=== PATIENT | male | born 1955 | race Caucasian/White ===

== ENCOUNTER 2016-10-05 04:34 | Inpatient (IN) | payer MEDICAID ==
[2016-10-05 04:34] VITALS: BMI 21.1
--- NOTE | 2016-10-05 05:06 | ED PDOC ---
HPI: SOB/CHF/COPD Chief Complaint (Provider): SAME History Per: Family History/Exam Limitations: physical impairment Onset/Duration Of Symptoms: Days Current Symptoms Are (Timing): Still Present <Manuela Rivera - Last Filed: 10/05/16 06:37> <Triston Falcon - Last Filed: 10/10/16 20:50> Time Seen by Provider: 10/05/16 04:39 Chief Complaint (Nursing): Shortness Of Breath Additional Complaint(s): 61M BIBA for acute SOB. reports that patient developed acute onset shortness of breath last night that did not improve. On further questioning patient has not been eating for 1 week, barely consumes 1/2 can of ensure/day and has decreased urine output that the reports is "dark". She reports last BM was yesterday "a little bit". PMD: Fan Long (Manuela Rivera) Past Medical History - Medical History PMH: CAD, CVA, HTN, Hypercholesterolemia, Peripheral Edema (NOT AT PRESENT) Denies: Chronic Kidney Disease - Family History Family History: States: Unknown Family Hx <DorypamelaManuela - Last Filed: 10/05/16 06:37> <Triston Falcon - Last Filed: 10/10/16 20:50> Vital Signs: Last Vital Signs Temp 100.8 F H 10/09/16 20:00 Pulse 110 H 10/09/16 20:00 Resp 39 H 10/09/16 20:00 BP 93/46 L 10/09/16 20:00 Pulse Ox 99 10/09/16 20:00 - Home Medications Home Medications: Ambulatory Orders Medication Instructions Recorded Aspirin [Ecotrin] 81 mg PO DAILY 10/24/15 Loratadine [Allergy] 10 mg PO DAILY 10/24/15 Losartan Potassium 25 mg PO DAILY 10/24/15 Quetiapine Fumarate 25 mg PO HS PRN 10/24/15 Rivastigmine 9.5 mg/24 hr [Exelon 1 patch TOP DAILY 10/24/15 9.5 mg/24 hr Patch] - Allergies Allergies/Adverse Reactions: Allergies Allergy/AdvReac Type Severity Reaction Status Date / Time No Known Allergies Allergy Verified 05/20/16 14:37 Wells Criteria for PE - Wells Criteria for Pulmonary Embolism Clinical Signs and Symptoms of DVT: Yes P.E is #1 Diagnosis, or Equally Likely: Yes Heart Rate >100: Yes Immobilization at least 3 days;Surgery previous 4 weeks: Yes Previous, objectively diagnosed PE or DVT: No Hemoptysis: No Malignancy w/treatment within 6 months, or palliative: No Total Score: 7.0 <Manuela Rivera - Last Filed: 10/05/16 06:37> Review of Systems ROS Statement: Except As Marked, All Systems Reviewed And Found Negative Constitutional: Positive for: Weakness Respiratory: Positive for: Shortness of Breath <Manuela Rivera - Last Filed: 10/05/16 06:37> Physical Exam - Physical Exam Appears: Positive for: Uncomfortable, In Acute Distress Head Exam: Positive for: ATRAUMATIC, NORMAL INSPECTION Skin: Positive for: Dry, Jaundice. Negative for: Diaphoresis Eye Exam: Positive for: EOMI, PERRL, Scleral icterus Neck: Positive for: Supple, Trachea Midline Cardiovascular/Chest: Positive for: JVD, Murmur, Tachycardia Respiratory: Negative for: Crackles, Rales, Wheezing Gastrointestinal/Abdominal: Positive for: Bowel Sounds, Soft. Negative for: Tenderness Male Genital Exam: Positive for: hernia mass (reducible) Extremity: Positive for: Pedal Edema (RIGHT 1+), Capillary Refill, Swelling ( RLE 1-2+) Neurologic/Psych: Positive for: Alert, Motor/Sensory Deficits (AT baseline) <Manuela Rivera - Last Filed: 10/05/16 06:37> - Laboratory Results Result Diagrams: 10/05/16 05:21 10/05/16 05:21 - ECG ECG: Positive for: Interpreted By Nh ECG Rhythm: Positive for: Sinus Rhythm, Sinus Tachycardia, Left Bundle Branch Block O2 Sat by Pulse Oximetry: 97 - Radiology X-Ray: Interpreted by Nh X-Ray Interpretation: Heart Size (Large) <Manuela Rivera - Last Filed: 10/05/16 06:37> - Laboratory Results Result Diagrams: 10/09/16 04:30 10/09/16 04:30 <Triston Falcon - Last Filed: 10/10/16 20:50> Medical Decision Making <Manuela Rivera - Last Filed: 10/05/16 06:37> <Triston Falcon - Last Filed: 10/10/16 20:50> Medical Decision MakinM with acute onset tachypnea volume depletion vs. PE vs. sepsis vs. electrolyte derangement. - ABG- shock: Lactate-6.2 - CBC: no anemia/leukocytosis but likely heme-concentrated - CMP: hyperkalemia, metabolic acidosis, BUN/Cr c/w pre-renal - urine dip/urinalysis/urine C&S - CXR: no infiltrates, enlarged heart - BNP: PENDING - Troponin: 0.05 - D-dimer: PENDING - PT/INR: prolonged - PTT: wnl 0605: BP/HR improving; Elevated LFT/chemistries c/w significant volume depletion. Sepsis unlikely at this time. Labs and points of improvement more c/ w volume depletion picture. - b/l Venous duplex for RLE edema x2 days - RUQ Ultrasound (Manuela Rivera) Provider examined patient as well. Patient shows clinical signs and symtoms of dehydration; also feel he has high probability of PE given LE edema and dyspnea. This is likely etiology of poor perfusion related elevated lactate level. Patient does not have acidosis on ABG or leukocytosis or fever making sepsis less likely. Patient signed out to Dr Johnson at 7AM; pending labs, imaging and re-eval. (Triston Falcon) Disposition - Patient ED Disposition Is Patient to be Admitted: Transfer of Care - Disposition Disposition: Transfer of Care Disposition Time: 06:40 Patient Signed Over To: Ryan Johnson III <Manuela Rivera - Last Filed: 10/05/16 06:37> <Triston Falcon - Last Filed: 10/10/16 20:50> - Clinical Impression Clinical Impression: Hypovolemia dehydration, SIRS (systemic inflammatory response syndrome) - Disposition Condition: CRITICAL
[2016-10-05 05:29] LABS: ABG ALLEN TEST YES; ARTERIAL BLOOD GAS HCO3 17.8 mmol/L (21-28); ARTERIAL BLOOD GAS MODE 3LNC; ARTERIAL BLOOD GAS PH 7.41 (7.35-7.45); ARTERIAL BLOOD GAS PO2 90 mm/Hg (80-100)
[2016-10-05 05:48] LABS: PARTIAL THROMBOPLASTIN TIME 32.2 SECONDS (23.3-32.5)
[2016-10-05 06:02] LABS: BASO % 0.1 % (0.0-2.0); HEMATOCRIT 46.8 % (35.0-51.0); LYMPH # 0.8 K/uL (1.0-4.3); LYMPH % 11.5 % (20.0-40.0); MEAN CORPUSCULAR HGB CONC 31.6 g/dL (33.0-37.0); MEAN PLATELET VOLUME 8.5 fl (7.2-11.7); MONO # 1.1 K/uL (0.0-0.8); MONO % 15.5 % (0.0-10.0); NEUT # 5.3 K/uL (1.8-7.0); NEUT % 72.9 % (50.0-75.0); NRBC % 0.2 % (0.0-0.0); RED CELL DISTRIBUTION WIDTH 15.2 % (11.5-14.5); WHITE BLOOD COUNT 7.3 K/uL (4.8-10.8)
[2016-10-05 06:06] LABS: ALB/GLOB RATIO 1.2 (1.0-2.1); BILIRUBIN,TOTAL 3.4 mg/dl (0.2-1.3); CALCIUM 11.2 mg/dL (8.4-10.2); POTASSIUM 5.7 MMOL/L (3.6-5.0); TOTAL PROTEIN 8.4 G/DL (6.3-8.2)
[2016-10-05 06:17] LABS: TROPONIN I 0.057 ng/mL (0.00-0.120)
[2016-10-05 07:07] LABS: RBC URINE 2 /hpf (0-3); URINE BILIRUBIN NEGATIVE (NEGATIVE); URINE BLOOD NEGATIVE (NEGATIVE); URINE COLOR AMBER (YELLOW); URINE GLUCOSE (UA) NEG (Normal); URINE KETONE NEGATIVE (NEGATIVE); URINE LEUKOCYTE ESTERASE NEG Leu/uL (Negative); URINE PROTEIN 100 mg/dL (NEGATIVE); WBC URINE 1 /hpf (0-5)
--- NOTE | 2016-10-05 07:58 | CARD ---
APPROVED REPORT EKG Measurement Heart [id number] <Conclusion> Wide QRS rhythm Left axis deviation LBBB Abnormal ECG
--- NOTE | 2016-10-05 08:01 | RAD ---
PROCEDURE: CHEST RADIOGRAPH, 1 VIEW HISTORY: admit COMPARISON: 02/28/2010 FINDINGS: LUNGS: Clear. PLEURA: No pneumothorax or pleural fluid seen. CARDIOVASCULAR: Enlarged cardiomediastinal silhouette. OSSEOUS STRUCTURES: The osseous structures demonstrate degenerative changes. VISUALIZED UPPER ABDOMEN: Normal. OTHER FINDINGS: None. IMPRESSION: No focal airspace opacity. Enlarged heart.
--- NOTE | 2016-10-05 08:36 | ED PDOC ---
- Laboratory Results Result Diagrams: 10/09/16 04:30 10/09/16 04:30 - ECG O2 Sat by Pulse Oximetry: 100 (RA) Pulse Ox Interpretation: Normal - Radiology X-Ray: Read By Radiologist X-Ray Interpretation: Other (Enlarged Heart. No focal airspace opacity. ) Medical Decision Making Medical Decision Makin Signed over to me by Tremaine Falcon MD pending labs, US, reassessment. Patient noted to be non-verbal. 0845 repeat VBG reviewed. Lactate now increased to 7.8. Will discuss with ICU. Calcium Gluconate, Sodium Bicarb, Insulin, IV fluids ordered. 0855 Labs, CXR, discussed with ICU Dr. Amado, who accepts patient to the ICU. [address] Ag radiology who recommends HIDA scan. Zosyn ordered. [address] Amado ICU. [address] Valdez (Medicine nurse transitional). Disposition - Clinical Impression Clinical Impression: Hypovolemia dehydration, SIRS (systemic inflammatory response syndrome) - POA Present On Arrival: Poor Glycemic Control - Disposition Disposition: Admitted as In-Patient Disposition Time: 09:00 Condition: CRITICAL Additional Comments - Additional Comments Additional Comments: Scribe Attestation: Documented by Miah Frye acting as a scribe for Ryan Johnson DO. Provider Scribe Attestation: All medical record entries made by the Scribe were at my direction and personally dictated by me. I have reviewed the chart and agree that the record accurately reflects my personal performance of the history, physical exam, medical decision making, and the department course for this patient. I have also personally directed, reviewed, and agree with the discharge instructions and disposition.
[2016-10-05] MEDS ORDERED: Sodium Bicarbonate 7.5% (0.9 MEQ/ML) 50ML INJ IV ONE (08:43)
[2016-10-05] MEDS ORDERED: Dextrose 50% SYRINGE Inj (50 ml) IVP ONE (08:43)
[2016-10-05] MEDS ORDERED: Insulin Regular 100 units/ml IVP ONE (08:43)
[2016-10-05 08:44] LABS: VENOUS BLOOD GAS BASE EXCESS -13.6 mmol/L (0.0-2.0); VENOUS BLOOD GAS PCO2 30 mmHg (40-60); VENOUS BLOOD PH 7.23 (7.32-7.43)
[2016-10-05] MEDS ORDERED: Calcium Gluconate 4.65 mEq/10 ml Inj IV ONE (08:47)
[2016-10-05] MEDS ORDERED: Sodium Chloride 0.9% 1,000 ML IV STA (08:49)
[2016-10-05] MEDS ORDERED: Piperacillin/Tazobact 3.375 GM in Sodium Chloride 0.9% 100 ML IVPB STA (09:00)
--- NOTE | 2016-10-05 09:04 | US ---
HISTORY: Elevated LFTs COMPARISON: None. TECHNIQUE: Sonographic evaluation of the abdomen. FINDINGS: LIVER: Measures 16 cm. Normal echogenicity of the liver parenchyma. Mild intrahepatic bile duct dilatation. Minimal perihepatic ascites. GALLBLADDER: The gallbladder is collapsed surrounding multiple echogenic calculi. There is gallbladder wall thickening. There is pericholecystic fluid. According to the technologist, the sonographic Rachel's sign was not present. COMMON BILE DUCT: Measures 3-4 mm. No stones. No dilatation. PANCREAS: Visualized portions of the pancreas appear unremarkable. RIGHT KIDNEY: Measures 9.4 x 5.1 x 4.4cm. Normal echogenicity. No calculus, mass, or hydronephrosis. LEFT KIDNEY: Not imaged. SPLEEN: Not imaged. AORTA: No aneurysmal dilatation within the visualized segments of the aorta. IVC: The visualized portions of the IVC appear unremarkable. OTHER FINDINGS: The visualized segments of the portal vein appear patent. IMPRESSION: Thickened gallbladder wall with pericholecystic fluid and echogenic calculus within the gallbladder lumen. These findings are somewhat nonspecific however, underlying gallbladder inflammation cannot be entirely excluded. If indicated, HIDA scan should be obtained. Mild intrahepatic biliary ductal dilatation. Minimal perihepatic ascites. Discussed with Dr. Johnson at approximately 9:05 p.m. on 10/05/2016.
--- NOTE | 2016-10-05 09:30 | US ---
Bilateral lower extremity ultrasound. Indication: Right lower extremity edema for 2 days Technique: Duplex ultrasound evaluation of the right/left lower extremity Comparison: None available Findings: Right lower extremity: Extensive thrombus (occlusive thrombus) involving the distal femoral vein, popliteal vein, and posterior tibial vein. The common femoral vein, proximal and mid portions of the femoral vein appear patent. Left lower extremity: Nonocclusive thrombus evident involving the popliteal vein. Thrombus is also noted within the left profunda (mid and distal portions) the common femoral vein, femoral vein, and posterior tibial veins appear patent. Impression: Bilateral lower extremity thrombus as above.
[2016-10-05] MEDS ORDERED: Calcium Gluconate 4.6 MEQ in Sodium Chloride 0.9% 100 ML IV ONE (09:45)
[2016-10-05] MEDS ORDERED: Sodium Bicarbonate 8.4% 10 MEQ/10 ML (PED) IV ONE (09:52)
[2016-10-05] MEDS ORDERED: Piperacillin/Tazobact 3.375 gm Inj IVPB ONE (09:52)
[2016-10-05] MEDS ORDERED: Insulin Regular 100 units/ml ONE (09:52)
[2016-10-05] MEDS ORDERED: Dextrose 50% SYRINGE Inj (50 ml) ONE (09:53)
[2016-10-05 10:37] LABS: MAGNESIUM 2.2 MG/DL (1.6-2.3); PHOSPHOROUS 5.9 mg/dl (2.5-4.5)
--- NOTE | 2016-10-05 11:24 | CP.PCM.CON ---
<Augustine Pacheco - Last Filed: 10/05/16 11:01> History of Present Illness - History of Present Illness History of Present Illness: 61 yo M w PMHx of CAD, CVA w R sided weakness, HTN, and HLD is admitted for 1 week for poor PO intake, SOB, lactic acidosis. Pt had originally been brought in to the ED due to SOB and lethargy that has not improved during previous 1 week. Pt is not vocal and has not been since previous CVA and does not walk. Denies any family history, denies any pertinent / positive ROS questions. PMD: Fan Long ED Course: -CBC -CMP -CXR -ABG -VBG -Urine Screen -U/S Abd -CTA -CT Abd -U/S Extrem Review of Systems - Review of Systems Review of Systems: see HPI Past Patient History - Past Medical History & Family History Past Medical History?: Yes - Past Social History Smoking Status: Former Smoker - CARDIAC Hx Cardiac Disorders: Yes (HTN, high cholesterol, peripheral edema) - PULMONARY Hx Respiratory Disorders: No - NEUROLOGICAL Hx Neurological Disorder: Yes (CVA) - HEENT Hx HEENT Problems: No - RENAL Hx Chronic Kidney Disease: No - ENDOCRINE/METABOLIC Hx Endocrine Disorders: Yes (DM) - HEMATOLOGICAL/ONCOLOGICAL Hx Blood Disorders: No - INTEGUMENTARY Hx Dermatological Problems: No - MUSCULOSKELETAL/RHEUMATOLOGICAL Hx Musculoskeletal Disorders: Yes (Restless Leg Syndrome) - GASTROINTESTINAL Hx Gastrointestinal Disorders: Yes (CONSTIPATION) - GENITOURINARY/GYNECOLOGICAL Hx Genitourinary Disorders: No - PSYCHIATRIC Hx Psychophysiologic Disorder: No - SURGICAL HISTORY Hx Surgeries: No - ANESTHESIA Hx Anesthesia: No Meds Allergies/Adverse Reactions: Allergies Allergy/AdvReac Type Severity Reaction Status Date / Time No Known Allergies Allergy Verified 05/20/16 14:37 - Medications Medications: Current Medications Vancomycin HCl 1 gm/ Sodium (Chloride) 250 mls @ 166.667 mls/hr IVPB ONCE ONE Stop: 10/05/16 11:49 Physical Exam - Constitutional Additional comments: see HPI Results - Vital Signs Recent Vital Signs: Last Vital Signs Temp 97.5 F L 10/05/16 07:15 Pulse 114 H 10/05/16 09:24 Resp 31 H 10/05/16 09:24 BP 115/84 10/05/16 09:24 Pulse Ox 100 10/05/16 09:24 - Labs Result Diagrams: 10/05/16 05:21 10/05/16 05:21 Assessment & Plan - Assessment and Plan (Free Text) Plan: 61 yo M w PMHx of CAD, CVA w R sided weakness, HTN, and HLD is admitted for 1 week for poor PO intake, SOB, lactic acidosis. 1) Lactic Acidosis -Considering differences and differentials bw Type A, Types B1, B2, B3; Likely B1 if no s/s of ischemia are found -Lactate 6.2 upon presentation, 7.8 at follow up -CXR: no infiltrates, enlarged heart -f/u CTA -f/u CT A/P -f/u Cardiac Echo -f/u D-Dimer -f/u BCx -f/u UCx 2) High Anion Gap Metabolic Acidosis -Likely secondary to lactic acidosis 3) Hypercalcemia -IVF -f/u Scans & Labs 4) Elevated Tbilirubin / LFTs -U/S Abd: Thickened gb wall w pericholecystic fluid & echogenic calculus w/in gb lumen. Mild intrahepatic biliary ductal dilation. -f/u CTA -Consider HYDA Scan if applicable 5) b/l LE DVTs -r/o PE w CTA 6) Severe dehydration & poor PO intake -Receiving IV fluid -f/u eval of lactic acidosis, elevated Tbili/LFTs, scans, and new labs <Cole Amado - Last Filed: 10/05/16 17:36> Meds - Medications Medications: Current Medications Sodium Chloride (Sodium Chloride 0.9%) 1,000 mls @ 150 mls/hr IV .[id number] [facility] Stop: 10/06/16 11:46 Last Admin: 10/05/16 12:35 Dose: 150 mls/hr Ceftriaxone Sodium 2 gm/ (Sodium Chloride) 100 mls @ 100 mls/hr IVPB Q24H CHERYL Heparin Sodium/Sodium Chloride (Heparin 61751 Units/250ml 1/2 Normal Saline) 250 mls @ 11 mls/hr IV .[id number] [facility] PRN Reason: Protocol Results - Vital Signs Recent Vital Signs: Last Vital Signs Temp 98 F 10/05/16 15:15 Pulse 86 10/05/16 15:15 Resp 16 10/05/16 15:15 BP 107/76 10/05/16 15:15 Pulse Ox 100 10/05/16 15:15 - Labs Result Diagrams: 10/05/16 05:21 10/05/16 15:48 Labs: Laboratory Results - last 24 hr 10/05/16 15:48 APTT 41.3 H Sodium 141 Potassium 4.9 Chloride 108 H Carbon Dioxide 20 L Anion Gap 18 BUN 40 H Creatinine 1.4 Est GFR ( Amer) > 60 Est GFR (Non-Af Amer) 52 Random Glucose 72 L Calcium 9.8 Total Bilirubin 2.7 H AST 952 H D ALT 541 H D Alkaline Phosphatase 63 Total Protein 6.7 Albumin 3.6 Globulin 3.1 Albumin/Globulin Ratio 1.2 Attending/Attestation - Attestation I have personally seen and examined this patient.: Yes I have fully participated in the care of the patient.: Yes I have reviewed all pertinent clinical information: Yes Notes (Text): 10/05/16 17:29 I have seen and examined the patient. Medical records, lab studies, and imaging were reviewed by me and a management plan was formulated on multidisciplinary rounds with resident Dr. Pacheco. I agree with their above documented assessment and plan. Patient presented with severe lactic acidosis, uncertain whether this is secondary to sepsis or some type B lactic acidosis. On imaging that it is found that patient has bilateral lower extremity DVTs and a PE, for which we will start a heparin drip. On CT abdomen there is evidence of acute cholecystitis, will start patient on ceftriaxone. General surgery was consulted for acute cholecystitis. Patient may need HIDA scan for further confirmation, but patient does not have ascending cholangitis. If surgical intervention is needed on a heparin drip can be stopped. Patient was also hyperkalemic and hypercalcemic upon arrival, patient has received fluid boluses and aggressive fluid hydration , will recheck electrolytes. Critical Care Time 180 minutes. Multi-disciplinary rounds were performed with house staff, nursing, speech therapy, respiratory therapy, pharmacy and nutrition with integrated input from the primary team/attending and other consulting services. The documented time is cumulative and includes review of patient data/exams/labs/chart review and examination of the patient on rounds and throughout the day; time is exclusive of any procedures or teaching time.
[2016-10-05] MEDS ORDERED: Vancomycin 1 g Inj ONE (11:34)
--- NOTE | 2016-10-05 12:24 | HP ---
CHIEF COMPLAINT: Feeling very weak. HISTORY OF PRESENT ILLNESS: This is a 61-year-old male, known case of hypertension, elevated cholest jesus manuel, history of coronary artery disease with acute MN and history of stroke in 2009, who is usually at home, lives with . Was not eating and drinking properly and was pocketing and was throwing it out. The patient started feeling weak and became generalized fatigue, tired, and also the patient st arted feeling very weak. The patient was brought to Emergency Room where the patient was found to be extremely dehydrated and was admitted for further management. REVIEW OF SYSTEMS: Positive for generalized weakness, fatigue, tired, malaise, fever, generalized derik dy ache and a change in mental status, loss of memory. Review of systems otherwise is negative for h eadache, dizziness, syncope, loss of consciousness, chest pain, shortness of breath, nausea, vomiting , diarrhea, constipation, any new joint or extremity pain. Review of systems of all other organ syst ems is unremarkable. PAST MEDICAL HISTORY: Significant for hypertension, coronary artery disease, status post CVA. PAST SURGICAL HISTORY: Remarkable for history of PERSONAL HISTORY: The patient is currently a nonsmoker, nondrinker, no substance abuse, but was smok ing heavy before stroke. FAMILY HISTORY: Noncontributory. MEDICATIONS: The patient is on multiple medications, which is as per reconciliation sheet, which was reviewed in order. PHYSICAL EXAMINATION: GENERAL: Chronically sick looking, fragile, nourished 51-year-old male in no acute respiratory distress. VITAL SIGNS: Temperature afebrile, pulse 114, blood pressure 100/70, saturation 96%. HEENT: The patient has shrunken eyeball. NECK: No JVD, no thyromegaly, no lymphadenopathy, no nystagmus. Normocephalic, atraumatic skull. HEART: S1, S2 normal, regular. No significant murmur, gallop or rub is heard. LUNGS: Shows good bilateral air exchange. No rales or rhonchi. ABDOMEN: Soft, nontender, no organomegaly, no fluid. Bowel sounds are plus. No sign of acute abdom en. No guarding, no rigidity, no rebound. EXTREMITIES: No edema, no calf swelling, no tenderness, no acute ischemia. CENTRAL NERVOUS SYSTEM: The patient is alert, awake, responsive. Has loss of short-term memory, but there does not seem to be any acute gross focal motor or sensory neurological deficit of neurology. DIAGNOSTIC DATA: Available diagnostic data reviewed. EKG shows sinus tachycardia and left bundle br anch block. Chest x-ray is clear. Blood tests are significant for lactic acid elevated. ADMITTING IMPRESSION: Possible septicemia, septic syndrome, status post CVA, dysphagia, status post acute myocardial infarction in 2008, coronary artery disease. PLAN: As ordered. Case and plan discussed with patient and patient's at bedside. Chun Valdez MD cc: [id number] TT: 10/05/2016 12:24:14 jn
[2016-10-05] MEDS: Sodium Chloride 0.9% 1,000 ML IV SCH ×2 (12:35→20:28)
[2016-10-05] MEDS ORDERED: Iodixanol 320 MG/ML 100 ML BOTTLE IV ONE (13:27)
[2016-10-05] MEDS ORDERED: Sodium Chloride 0.9% 50 ML IV ONE (13:27)
--- NOTE | 2016-10-05 14:46 | CT ---
PROCEDURE: CT Chest, Abdomen and Pelvis with intravenous contrast HISTORY: lactic acidosis, r/o PE, abd pain COMPARISON: None. TECHNIQUE: IV dose administered: 95 cc Visipaque 320. Radiation dose: Total exam DLP = 1023.23 mGy-cm. FINDINGS: CT CHEST WITH CONTRAST: LUNGS: Clear. No nodule, mass or consolidation. MEDIASTINUM: Unremarkable. Normal caliber aorta and pulmonary arterial trunk. No aortic dissection. Cardiomegaly. No evidence of acute, significant cardiovascular disease. Calcifications within the left ventricle again identified, findings incompletely visualized on prior CT scan of the abdomen and pelvis performed 11/29/2015. LYMPH NODES: Unremarkable. PLEURA: Unremarkable. No pneumothorax. No pleural fluid. BONES: Unremarkable. OTHER FINDINGS: Acute pulmonary embolism. Embolic disease seen in the distal right main pulmonary artery extending into the middle and lower lobe segments. There is no central saddle embolism. There also appear to be a subsegmental emboli basilar segment left lower lobe. CT ABDOMEN AND PELVIS: LIVER: Unremarkable. No gross lesion or ductal dilatation. GALLBLADDER AND BILE DUCTS: Multiple gallstones identified. Gallbladder wall thickening and pericholecystic fluid consistent with acute cholecystitis. PANCREAS: Unremarkable. No gross lesion or ductal dilatation. SPLEEN: Unremarkable. ADRENALS: Unremarkable. No mass. KIDNEYS AND URETERS: Unremarkable. No hydronephrosis. No solid mass. Perinephric inflammatory changes and fluid in the perinephric space. VASCULATURE: Unremarkable. No aortic aneurysm. BOWEL: Right inguinal hernia containing mesenteries and loops of small bowel without evidence of incarceration or proximal obstruction. Inflammatory changes right hemicolon. Differential considerations include colitis or reactive inflammatory changes secondary to adjacent cholecystitis. APPENDIX: Not visualized. PERITONEUM: Unremarkable. No free fluid. No free air. LYMPH NODES: Unremarkable. No enlarged lymph nodes. BLADDER: Ivan catheter in satisfactory position in a decompressed urinary bladder. REPRODUCTIVE: Unremarkable. BONES: No acute fracture. OTHER FINDINGS: None. IMPRESSION: 1. Acute pulmonary embolism. Thrombus identified in the distal right main pulmonary artery as well as right middle right lower lobe segments. Subsegmental emboli left lower lobe basilar segment. 2. Cholelithiasis with findings highly suggestive of acute cholecystitis. 3. Inflammatory changes right hemicolon. 4. Large right inguinal hernia containing mesenteries in nondilated loops of small bowel without evidence of incarceration or obstruction. Communication of results: I discussed these findings with the nurse in the intensive care unit at 14:37. The study was completed at 14:02.
[2016-10-05] MEDS ORDERED: Pneumococcal 23-Valent Vaccine IM ONE (15:02)
[2016-10-05] MEDS ORDERED: Influenza Vaccine(5yr & older) 0.5 ML/45 MCG IM ONE (15:02)
[2016-10-05 16:09] LABS: ALB/GLOB RATIO 1.2 (1.0-2.1); ALKALINE PHOSPHATASE 63 U/L (38-126); ALT/SGPT 541 U/L (21-72); BILIRUBIN,TOTAL 2.7 mg/dl (0.2-1.3); BLOOD UREA NITROGEN 40 mg/dl (9-20); CALCIUM 9.8 mg/dL (8.4-10.2); CARBON DIOXIDE 20 mmol/L (22-30); CHLORIDE 108 mmol/L (98-107); GFR AFRICAN-AMERICAN > 60; GLUCOSE,RANDOM 72 mg/dL (75-110); POTASSIUM 4.9 MMOL/L (3.6-5.0); SODIUM 141 mmol/l (132-148); TOTAL PROTEIN 6.7 G/DL (6.3-8.2)
[2016-10-05 16:23] LABS: AST/SGOT 952 U/L (17-59)
[2016-10-05] MEDS ORDERED: Heparin25000 units/250ml 1/2NS 250 ML IV ONE (16:29)
[2016-10-05] MEDS: Heparin 25,000units in D5W 250 ML IV SCH ×2 (16:54→18:21)
[2016-10-05] MEDS ORDERED: cefTRIAXone 2 GM in Sodium Chloride 0.9% 100 ML IVPB SCH (17:00)
[2016-10-05] MEDS ORDERED: Heparin25000 units/250ml 1/2NS 250 ML IV SCH (17:30)
[2016-10-06 01:47] LABS: BASO % 0.3 % (0.0-2.0); HEMATOCRIT 43.1 % (35.0-51.0); LYMPH % 7.9 % (20.0-40.0); MEAN CELL VOLUME 94.7 fl (80.0-94.0); MEAN CORPUSCULAR HEMOGLOBIN 29.7 pg (27.0-31.0); MEAN CORPUSCULAR HGB CONC 31.3 g/dL (33.0-37.0); MEAN PLATELET VOLUME 8.6 fl (7.2-11.7); MONO # 1.9 K/uL (0.0-0.8); MONO % 15.4 % (0.0-10.0); NEUT # 9.6 K/uL (1.8-7.0); NEUT % 76.4 % (50.0-75.0); NRBC % 0.3 % (0.0-0.0); RED CELL DISTRIBUTION WIDTH 15.1 % (11.5-14.5)
[2016-10-06 01:51] LABS: PLATELET COUNT 124 K/uL (130-400); WHITE BLOOD COUNT 12.6 K/uL (4.8-10.8)
[2016-10-06 03:33] LABS: NEUTROPHIL 82 % (42-75); TOTAL CELLS COUNTED 100
[2016-10-06 03:38] LABS: ACANTHOCYTES SLIGHT
[2016-10-06 03:40] LABS: LARGE PLATELETS PRESENT
[2016-10-06] MEDS: Sodium Chloride 0.9% 1,000 ML IV SCH (04:31)
--- NOTE | 2016-10-06 07:59 | CARD ---
APPROVED REPORT EXAM: Two-dimensional and M-mode echocardiogram with Doppler, color Doppler with contrast. Other Information Quality : GoodRhythm : NSR INDICATION Dyspnea ASSESS RV STRAIN Echo Enhancing Agent Indication: Rule out thrombus Agent/Amount Used: Definity 2D DIMENSIONS IVSd0.72 (0.7-1.1cm)LVDd7.17 (3.9-5.9cm) LVOT Diameter2.22 (1.8-2.4cm)PWd0.77 (0.7-1.1cm) IVSs0.71 (0.8-1.2cm)LVDs7.02 (2.5-4.0cm) FS (%) 2.1 %PWs0.62 (0.8-1.2cm) M-Mode DIMENSIONS Left Atrium (MM)5.74 (2.5-4.0cm)IVSd0.38 (0.7-1.1cm) Aortic Root3.12 (2.2-3.7cm)LVDd7.82 (4.0-5.6cm) Aortic Cusp Exc.1.76 (1.5-2.0cm)PWd0.76 (0.7-1.1cm) IVSs0.29 cmFS (%) 7 % LVDs7.26 (2.0-3.8cm)PWs0.94 cm Mitral Valve E/A ratio0.0 TDI E/Lateral E'0.0E/Medial E'0.0 Tricuspid Valve TR Peak [id number] [id number] Peak Gr.50mmHg [id number] LEFT VENTRICLE The Left Ventricle is severely dilated. [place] appears markedly thin walled. Remaining LV segments were normal in thickness. Left ventricle systolic function is profoundly depressed The Ejection Fraction is <10%. [place] and apical halves of septum ant and lateral sen were globolar and akinetic.other segments were severely hypokinetic Transmitral Doppler flow pattern is Grade II-pseudonormal filling dynamics. RIGHT VENTRICLE The right ventricle is normal size. There is normal right ventricular wall thickness. The right ventricular systolic function is normal. ATRIA The left atrium is moderately dilated. The right atrium size is normal. AORTIC VALVE The aortic valve is normal in structure and function. No aortic regurgitation is present. There is no aortic valvular stenosis. MITRAL VALVE The mitral valve is normal in structure. There is no evidence of mitral valve prolapse. There is no mitral valve stenosis. Mitral regurgitation is severe. TRICUSPID VALVE The tricuspid valve is normal in structure. There is moderate tricuspid regurgitation. Right ventricular systolic pressure is estimated at 60 mmHg. There is severe pulmonary hypertension. PULMONIC VALVE The pulmonary valve is normal in structure and function. There is no pulmonic valvular regurgitation. GREAT VESSELS The aortic root is normal in size. Due to poor image quality, the IVC could not be assessed. PERICARDIAL EFFUSION The pericardium appears normal. <Conclusion> The Left Ventricle is severely dilated. [place] appears markedly thin walled. Remaining LV segments were normal in thickness. [place] and apical halves of septum ant and lateral sen were globolar and akinetic.other segments were severely hypokinetic Left ventricle systolic function is profoundly depressed The Ejection Fraction is <10%. Transmitral Doppler flow pattern is Grade II-pseudonormal filling dynamics. The left atrium is moderately dilated. Mitral regurgitation is severe. There is moderate tricuspid regurgitation. There is severe pulmonary hypertension. Echo enhancement was used to rule out LV apical thrombus.
[2016-10-06 09:08] LABS: ALB/GLOB RATIO 1.1 (1.0-2.1); BILIRUBIN,TOTAL 2.6 mg/dl (0.2-1.3); CALCIUM 9.9 mg/dL (8.4-10.2); POTASSIUM 5.2 MMOL/L (3.6-5.0); TOTAL PROTEIN 6.9 G/DL (6.3-8.2)
[2016-10-06 09:12] LABS: BASO % 0.4 % (0.0-2.0); HEMATOCRIT 47.9 % (35.0-51.0); LYMPH # 0.7 K/uL (1.0-4.3); LYMPH % 6.1 % (20.0-40.0); MEAN CELL VOLUME 95.5 fl (80.0-94.0); MEAN CORPUSCULAR HEMOGLOBIN 29.9 pg (27.0-31.0); MEAN CORPUSCULAR HGB CONC 31.3 g/dL (33.0-37.0); MEAN PLATELET VOLUME 8.6 fl (7.2-11.7); MONO # 1.3 K/uL (0.0-0.8); NEUT # 9.1 K/uL (1.8-7.0); NEUT % 81.5 % (50.0-75.0); NRBC % 0.3 % (0.0-0.0); RED CELL DISTRIBUTION WIDTH 15.7 % (11.5-14.5); WHITE BLOOD COUNT 11.2 K/uL (4.8-10.8)
--- NOTE | 2016-10-06 09:29 | CP.PCM.CON ---
<Jomar Stoll - Last Filed: 10/06/16 09:47> History of Present Illness - History of Present Illness History of Present Illness: Gen Surg: Dr. Sánchez 61M w/ PMHx of HTN, HLD, CVA w/ R sided weakness, and CAD presented to ED for SOB on 10/05. Patient was seen and examined with Dr. Sánchez. states that patient developed SOB which did not improve. She also reports patient's PO intake had decreased for over a week. Surgery was consulted for acute cholecystitis. Abdominal U/S demonstrated thickened GB w/ pericholecystic fluid and cholelithiasis w/ CBD measuring about 4mm. states that for the past week patient's urine had changed color, reported color to be a "dark yellow tinge". denies patient ever being jaundice. Patient's lactic acid was found to be elevated. Extremity U/S demonstrated b/l lower extremity thrombus. On CTA pt was found to have acute pulmonary embolism, cholelithiasis, and large R inguinal hernia w/o signs of obstruction. Patient has an EF of less than 10%. At time of examination patient reported SOB. PMHx: as stated above PSurgHx: denies Allergies: NKDA Review of Systems - Review of Systems Review of Systems: 12 pt ROS carried out, unremarkable; except as stated in HPI Past Patient History - Past Medical History & Family History Past Medical History?: Yes - Past Social History Smoking Status: Unknown If Ever Smoked - CARDIAC Hx Cardiac Disorders: Yes (HTN, high cholesterol, peripheral edema) - PULMONARY Hx Respiratory Disorders: No - NEUROLOGICAL Hx Neurological Disorder: Yes (CVA) - HEENT Hx HEENT Problems: No - RENAL Hx Chronic Kidney Disease: No - ENDOCRINE/METABOLIC Hx Endocrine Disorders: Yes (DM) - HEMATOLOGICAL/ONCOLOGICAL Hx Blood Disorders: No - INTEGUMENTARY Hx Dermatological Problems: No - MUSCULOSKELETAL/RHEUMATOLOGICAL Hx Musculoskeletal Disorders: Yes (Restless Leg Syndrome) Hx Falls: No - GASTROINTESTINAL Hx Gastrointestinal Disorders: Yes (CONSTIPATION) - GENITOURINARY/GYNECOLOGICAL Hx Genitourinary Disorders: No - PSYCHIATRIC Hx Psychophysiologic Disorder: No Hx Substance Use: No - SURGICAL HISTORY Hx Surgeries: No - ANESTHESIA Hx Anesthesia: No Meds Allergies/Adverse Reactions: Allergies Allergy/AdvReac Type Severity Reaction Status Date / Time No Known Allergies Allergy Verified 05/20/16 14:37 - Medications Medications: Current Medications Sodium Chloride (Sodium Chloride 0.9%) 1,000 mls @ 150 mls/hr IV .[id number] [facility] Stop: 10/06/16 11:46 Last Admin: 10/06/16 04:31 Dose: 150 mls/hr Ceftriaxone Sodium 2 gm/ (Sodium Chloride) 100 mls @ 100 mls/hr IVPB Q24H [facility] Last Admin: 10/05/16 20:26 Dose: 100 mls/hr Heparin Sodium/Sodium Chloride (Heparin 58189 Units/250ml 1/2 Normal Saline) 250 mls @ 11 mls/hr IV .[id number] [facility] PRN Reason: Protocol Last Admin: 10/05/16 16:15 Dose: 11 mls/hr Ramipril (Altace) 1.25 mg PO DAILY [facility] Physical Exam - Constitutional Appears: Other Additional comments: SOB - Head Exam Head Exam: NORMOCEPHALIC - Eye Exam Eye Exam: Normal appearance - ENT Exam ENT Exam: Mucous Membranes Moist - Respiratory Exam Respiratory Exam: Accessory Muscle Use Additional comments: tachypnea - Cardiovascular Exam Cardiovascular Exam: +S1, +S2 - GI/Abdominal Exam GI & Abdominal Exam: Hernia, Soft - Extremities Exam Additional comments: calf swelling, R>L - Neurological Exam Neurological exam: Alert - Psychiatric Exam Psychiatric exam: Normal Mood - Skin Skin Exam: Dry, Normal Color, Warm Results - Vital Signs Recent Vital Signs: Last Vital Signs Temp 97.4 F L 10/06/16 08:00 Pulse 100 H 10/06/16 08:00 Resp 45 H 10/06/16 08:00 BP 105/78 10/06/16 08:00 Pulse Ox 100 10/06/16 08:00 - Labs Result Diagrams: 10/06/16 08:47 10/06/16 08:47 Labs: Laboratory Results - last 24 hr 10/05/16 10/05/16 10/06/16 15:48 22:14 00:15 WBC RBC Hgb Hct MCV MCH MCHC RDW Plt Count MPV Neut % (Auto) Lymph % (Auto) [place] % (Auto) Eos % (Auto) Baso % (Auto) Neut # Lymph # [place] # Eos # Baso # Neutrophils % (Manual) Band Neutrophils % Lymphocytes % (Manual) Monocytes % (Manual) Platelet Estimate Large Platelets Poikilocytosis (manual Anisocytosis (manual) Ovalocytes Martha Cells Acanthocytes (Spur) Schistocytes APTT 41.3 H 320.0 H* D Sodium 141 Potassium 4.9 Chloride 108 H Carbon Dioxide 20 L Anion Gap 18 BUN 40 H Creatinine 1.4 Est GFR ( Amer) > 60 Est GFR (Non-Af Amer) 52 Random Glucose 72 L Lactic Acid 4.8 H* Calcium 9.8 Total Bilirubin 2.7 H AST 952 H D ALT 541 H D Alkaline Phosphatase 63 Total Protein 6.7 Albumin 3.6 Globulin 3.1 Albumin/Globulin Ratio 1.2 10/06/16 10/06/16 10/06/16 00:48 01:55 08:47 WBC 12.6 H D 11.2 H RBC 4.56 5.01 Hgb 13.5 15.0 Hct 43.1 47.9 MCV 94.7 H 95.5 H MCH 29.7 29.9 MCHC 31.3 L 31.3 L RDW 15.1 H 15.7 H Plt Count 124 L D 142 MPV 8.6 8.6 Neut % (Auto) 76.4 H 81.5 H Lymph % (Auto) 7.9 L 6.1 L [place] % (Auto) 15.4 H 12.0 H Eos % (Auto) 0.0 0.0 Baso % (Auto) 0.3 0.4 Neut # 9.6 H 9.1 H Lymph # 1.0 0.7 L [place] # 1.9 H 1.3 H Eos # 0.0 0.0 Baso # 0.0 0.0 Neutrophils % (Manual) 82 H Band Neutrophils % 1 Lymphocytes % (Manual) 6 L Monocytes % (Manual) 11 H Platelet Estimate Slightly decreased L Large Platelets Present Poikilocytosis (manual Moderate Anisocytosis (manual) Slight Ovalocytes Slight [place]von Cells Slight Acanthocytes (Spur) Slight Schistocytes Slight APTT 320.0 H* Sodium 153 H Potassium 5.2 H Chloride 115 H Carbon Dioxide 17 L Anion Gap 26 H BUN 45 H Creatinine 1.5 Est GFR ( Amer) 58 Est GFR (Non-Af Amer) 48 Random Glucose 67 L Lactic Acid 4.1 H* Calcium 9.9 Total Bilirubin 2.6 H AST 1212 H ALT 732 H D Alkaline Phosphatase 63 Total Protein 6.9 Albumin 3.6 Globulin 3.3 Albumin/Globulin Ratio 1.1 - Imaging and Cardiology CT scan - chest Status: Image reviewed by me, Report reviewed by me US - abdomen Status: Image reviewed by me, Report reviewed by me Assessment & Plan - Assessment and Plan (Free Text) Assessment: 61M who presented with SOB found to have acute PE & b/l LE thrombus w/ EF of 10 % w/ concerns of acute cholecystitis -Patient is a poor surgical candidate, no plans for acute surgical intervention -Will order MRCP -Will plan to order HIDA, if +, recommend cholecystostomy tube be placed by IR -Will continue to monitor and follow patient -Patient seen and examined with Dr. Sánchez this morning -Discussed plan with Dr. Sánchez - Date & Time Date: 10/06/16 Time: 09:00 <Murray Sánchez - Last Filed: 10/07/16 10:22> History of Present Illness - History of Present Illness History of Present Illness: Patient was seen and examined at the bedside. Agree with resident's note above Meds - Medications Medications: Current Medications Piperacillin Sod/Tazobactam (Sod 2.25 gm/ Sodium Chloride) 100 mls @ 100 mls/ hr IVPB Q6 [facility] Last Admin: 10/07/16 03:58 Dose: 100 mls/hr Ipratropium Schaller (Atrovent) 0.5 mg IH Q8H PRN PRN Reason: sob/wheezing Levalbuterol HCl (Xopenex) 0.63 mg INH RQ8 PRN PRN Reason: Shortness of Breath Last Admin: 10/06/16 20:00 Dose: 0.63 mg Results - Vital Signs Recent Vital Signs: Last Vital Signs Temp 98.2 F 10/07/16 08:00 Pulse 103 H 10/07/16 08:00 Resp 31 H 10/07/16 08:00 BP 96/68 L 10/07/16 08:00 Pulse Ox 96 10/07/16 08:00 - Labs Result Diagrams: 10/07/16 04:50 10/07/16 04:50 Labs: Laboratory Results - last 24 hr 10/06/16 10/06/16 10/06/16 11:08 11:31 16:45 WBC RBC Hgb Hct MCV MCH MCHC RDW Plt Count APTT 320.0 H* D Sodium Potassium Chloride Carbon Dioxide Anion Gap BUN Creatinine Est GFR ( Amer) Est GFR (Non-Af Amer) POC Glucose (mg/dL) Random Glucose Calcium Total Bilirubin Direct Bilirubin AST ALT Alkaline Phosphatase Ammonia < 9 L Total Protein Albumin Globulin Albumin/Globulin Ratio Hepatitis A IgM Ab Negative Hep Bs Antigen Negative Hep B Core IgM Ab Negative Hepatitis C Antibody Negative 10/06/16 10/06/16 10/07/16 20:13 22:00 04:50 WBC 10.7 RBC 4.72 Hgb 14.2 Hct 44.9 MCV 95.3 H MCH 30.1 MCHC 31.6 L RDW 15.9 H Plt Count 107 L D APTT Sodium 150 H Potassium 4.5 Chloride 119 H Carbon Dioxide 16 L Anion Gap 20 BUN 58 H Creatinine 1.8 H Est GFR ( Amer) 47 Est GFR (Non-Af Amer) 39 POC Glucose (mg/dL) 60 L 128 H Random Glucose 89 Calcium 9.2 Total Bilirubin 2.4 H Direct Bilirubin 0.7 H AST 1478 H ALT 987 H D Alkaline Phosphatase 53 Ammonia Total Protein 6.0 L Albumin 3.1 L Globulin 2.9 Albumin/Globulin Ratio 1.1 Hepatitis A IgM Ab Hep Bs Antigen Hep B Core IgM Ab Hepatitis C Antibody 10/07/16 06:08 WBC RBC Hgb Hct MCV MCH MCHC RDW Plt Count APTT Sodium Potassium Chloride Carbon Dioxide Anion Gap BUN Creatinine Est GFR ( Amer) Est GFR (Non-Af Amer) POC Glucose (mg/dL) 91 Random Glucose Calcium Total Bilirubin Direct Bilirubin AST ALT Alkaline Phosphatase Ammonia Total Protein Albumin Globulin Albumin/Globulin Ratio Hepatitis A IgM Ab Hep Bs Antigen Hep B Core IgM Ab Hepatitis C Antibody
[2016-10-06 09:34] LABS: PARTIAL THROMBOPLASTIN TIME 34.9 SECONDS (23.3-32.5)
[2016-10-06] MEDS ORDERED: Lactated Ringer's 1,000 ML IV SCH (10:15)
[2016-10-06] MEDS ORDERED: Meropenem 1 GM in Sodium Chloride 0.9% 100 ML IVPB SCH (10:30)
--- NOTE | 2016-10-06 10:57 | PN ---
DATE: 10/06/2016 The patient seen and examined. Interim events noted. Consults noted, appreciated. The patient toña ins in intensive care unit. Case discussed with docking saw operator and surgeon. The patient is not a relia ble historian. No chest pain or shortness of breath. No abdominal pain. PHYSICAL EXAMINATION: GENERAL: The patient is in no acute distress. VITAL SIGNS: Stable. HEART: LUNGS: Bilateral air exchange. ABDOMEN: Soft, nontender. No sign of acute abdomen. No guarding, no rigidity, no rebound. EXTREMITIES: No calf swelling, no tenderness, no acute ischemia. CENTRAL NERVOUS SYSTEM: Essentially unchanged. DIAGNOSTIC DATA: Available diagnostic data reviewed. Telemetry monitoring does not reveal significa nt arrhythmias, stress contractions less than 10%. Overall, the patient is critically sick. A long-term prognosis is poor. Explained to patient and wi fe at bedside in detail. The patient is not able to understand the situation. PLAN: As ordered. Chun Valdez MD cc: [id number] TT: 10/06/2016 10:56:04 Confirmation # [id number] Dictation # [id number] garcía
--- NOTE | 2016-10-06 11:07 | CP.CCUPN ---
<Augustine Pacheco T - Last Filed: 10/06/16 10:37> CCU Subjective - Physician Review Subjective (Free Text): Pt seen and examined at bedside in ICU. Pt is alert, comfortably lying supine in his bed and mumbling in [place]jar[place]. With assistance of paediatric physiotherapist, pt is found to be able to answer simple questions such as his name or family, but not more descriptive ones such as time or serial subtractions. The paediatric physiotherapist notes a disconnect between what he is saying and what is being asked, as if he lacks a true understanding of how to use language. Pt denies any pain, despite wincing in obvious discomfort during abd physical exam. Due to his AMS, he is unable to answer full ROS questions. CCU Objective - Vital Signs / Intake & Output Vital Signs (Last 4 hours): Vital Signs Temp Pulse Resp BP Pulse Ox 10/06/16 08:00 97.4 F L 100 H 45 H 105/78 100 Intake and Output (Last 8hrs): Intake & Output 10/05/16 10/06/16 10/06/16 22:59 06:59 14:59 Intake Total 1244 1200 Output Total 260 250 Balance 984 950 Intake: IV 1200 1200 Intake, Piggyback 44 Oral 0 0 Output: Urine 260 250 Urethral (Ivan) 260 250 - Physical Exam Physical Exam Limitations: Positive for: Altered Mental Status Head: Positive for: Atraumatic, Normocephalic Pupils: Positive for: PERRL Extroacular Muscles: Positive for: EOMI Conjunctiva: Positive for: Icteric Mouth: Positive for: Dry Neck: Positive for: Trachea Midline. Negative for: MIDLINE TENDERNESS Respiratory/Chest: Positive for: Clear to Auscultation. Negative for: Wheezes, Decreased Breath Sounds, Rhonchi Cardiovascular: Positive for: Regular Rate and Rhythm, Murmurs Abdomen: Positive for: Tenderness. Negative for: Distention, Rebound, Guarding Genitourinary Male: Positive for: Hernias (reducible) Upper Extremity: Positive for: Normal Inspection. Negative for: Edema Lower Extremity: Positive for: Edema Neurological: Positive for: CN II-XII Intact. Negative for: Speech Normal Skin: Positive for: Dry Psychiatric: Positive for: Alert, Other (orientation varies bw self and self & location) - Medications Active Medications: Active Medications Generic Name Dose Route Start Last Admin Trade Name Freq PRN Reason Stop Dose Admin Heparin Sodium/Sodium Chloride 250 mls @ 11 mls/hr 10/05/16 17:30 10/05/16 16: 15 Heparin 48893 Units/250ml 1/2 Normal Saline IV 11 mls/hr .[id number] [facility] Administration Protocol Lactated Ringer's 1,000 mls @ 75 mls/hr 10/06/16 10:15 Lactated Ringer's IV .[id number] [facility] Piperacillin Sod/Tazobactam 100 mls @ 100 mls/hr 10/06/16 10:30 Sod 2.25 gm/ Sodium Chloride IVPB Q6 [facility] - Patient Studies Lab Studies: Lab Studies 10/06/16 10/06/16 10/06/16 Range/Units 08:47 01:55 00:48 WBC 11.2 H 12.6 H D (4.8-10.8) K/uL RBC 5.01 4.56 (4.40-5.90) Mil/uL Hgb 15.0 13.5 (12.0-18.0) g/dL Hct 47.9 43.1 (35.0-51.0) % MCV 95.5 H 94.7 H (80.0-94.0) fl MCH 29.9 29.7 (27.0-31.0) pg MCHC 31.3 L 31.3 L (33.0-37.0) g/dL RDW 15.7 H 15.1 H (11.5-14.5) % Plt Count 142 124 L D (130-400) K/uL MPV 8.6 8.6 (7.2-11.7) fl Neut % (Auto) 81.5 H 76.4 H (50.0-75.0) % Lymph % (Auto) 6.1 L 7.9 L (20.0-40.0) % [place] % (Auto) 12.0 H 15.4 H (0.0-10.0) % Eos % (Auto) 0.0 0.0 (0.0-4.0) % Baso % (Auto) 0.4 0.3 (0.0-2.0) % Neut # 9.1 H 9.6 H (1.8-7.0) K/uL Lymph # 0.7 L 1.0 (1.0-4.3) K/uL [place] # 1.3 H 1.9 H (0.0-0.8) K/uL Eos # 0.0 0.0 (0.0-0.7) K/uL Baso # 0.0 0.0 (0.0-0.2) K/uL Neutrophils % (Manual) 82 H (42-75) % Band Neutrophils % 1 (0-2) % Lymphocytes % (Manual) 6 L (20-50) % Monocytes % (Manual) 11 H (0-10) % Platelet Estimate Slightly decreased L (NORMAL) Large Platelets Present Poikilocytosis (manual Moderate Anisocytosis (manual) Slight Ovalocytes Slight [place] Cells Slight Acanthocytes (Spur) Slight Schistocytes Slight PT 23.2 H (9.6-11.2) SECONDS INR 2.23 H (0.92-1.08) APTT 34.9 H D 320.0 H* (23.3-32.5) SECONDS Sodium 153 H (132-148) mmol/l Potassium 5.2 H (3.6-5.0) MMOL/L Chloride 115 H (98-107) mmol/L Carbon Dioxide 17 L (22-30) mmol/L Anion Gap 26 H (10-20) BUN 45 H (9-20) mg/dl Creatinine 1.5 (0.8-1.5) mg/dL Est GFR ( Amer) 58 Est GFR (Non-Af Amer) 48 Random Glucose 67 L (75-110) mg/dL Lactic Acid 4.1 H* (0.7-2.1) MMOL/L Calcium 9.9 (8.4-10.2) mg/dL Total Bilirubin 2.6 H (0.2-1.3) mg/dl AST 1212 H (17-59) U/L ALT 732 H D (21-72) U/L Alkaline Phosphatase 63 (38-126) U/L Total Protein 6.9 (6.3-8.2) G/DL Albumin 3.6 (3.5-5.0) g/dL Globulin 3.3 (2.2-3.9) gm/dL Albumin/Globulin Ratio 1.1 (1.0-2.1) 03/10/05/16 10/05/16 Range/Units 00:15 22:14 15:48 WBC (4.8-10.8) K/uL RBC (4.40-5.90) Mil/uL Hgb (12.0-18.0) g/dL Hct (35.0-51.0) % MCV (80.0-94.0) fl MCH (27.0-31.0) pg MCHC (33.0-37.0) g/dL RDW (11.5-14.5) % Plt Count (130-400) K/uL MPV (7.2-11.7) fl Neut % (Auto) (50.0-75.0) % Lymph % (Auto) (20.0-40.0) % [place] % (Auto) (0.0-10.0) % Eos % (Auto) (0.0-4.0) % Baso % (Auto) (0.0-2.0) % Neut # (1.8-7.0) K/uL Lymph # (1.0-4.3) K/uL [place] # (0.0-0.8) K/uL Eos # (0.0-0.7) K/uL Baso # (0.0-0.2) K/uL Neutrophils % (Manual) (42-75) % Band Neutrophils % (0-2) % Lymphocytes % (Manual) (20-50) % Monocytes % (Manual) (0-10) % Platelet Estimate (NORMAL) Large Platelets Poikilocytosis (manual Anisocytosis (manual) Ovalocytes [place] Cells Acanthocytes (Spur) Schistocytes PT (9.6-11.2) SECONDS INR (0.92-1.08) APTT 320.0 H* D 41.3 H (23.3-32.5) SECONDS Sodium 141 (132-148) mmol/l Potassium 4.9 (3.6-5.0) MMOL/L Chloride 108 H (98-107) mmol/L Carbon Dioxide 20 L (22-30) mmol/L Anion Gap 18 (10-20) BUN 40 H (9-20) mg/dl Creatinine 1.4 (0.8-1.5) mg/dL Est GFR ( Amer) > 60 Est GFR (Non-Af Amer) 52 Random Glucose 72 L (75-110) mg/dL Lactic Acid 4.8 H* (0.7-2.1) MMOL/L Calcium 9.8 (8.4-10.2) mg/dL Total Bilirubin 2.7 H (0.2-1.3) mg/dl AST 952 H D (17-59) U/L ALT 541 H D (21-72) U/L Alkaline Phosphatase 63 (38-126) U/L Total Protein 6.7 (6.3-8.2) G/DL Albumin 3.6 (3.5-5.0) g/dL Globulin 3.1 (2.2-3.9) gm/dL Albumin/Globulin Ratio 1.2 (1.0-2.1) Laboratory Results - last 24 hr 10/05/16 10/05/16 10/06/16 15:48 22:14 00:15 WBC RBC Hgb Hct MCV MCH MCHC RDW Plt Count MPV Neut % (Auto) Lymph % (Auto) [place] % (Auto) Eos % (Auto) Baso % (Auto) Neut # Lymph # [place] # Eos # Baso # Neutrophils % (Manual) Band Neutrophils % Lymphocytes % (Manual) Monocytes % (Manual) Platelet Estimate Large Platelets Poikilocytosis (manual Anisocytosis (manual) Ovalocytes [place] Cells Acanthocytes (Spur) Schistocytes PT INR APTT 41.3 H 320.0 H* D Sodium 141 Potassium 4.9 Chloride 108 H Carbon Dioxide 20 L Anion Gap 18 BUN 40 H Creatinine 1.4 Est GFR ( Amer) > 60 Est GFR (Non-Af Amer) 52 Random Glucose 72 L Lactic Acid 4.8 H* Calcium 9.8 Total Bilirubin 2.7 H AST 952 H D ALT 541 H D Alkaline Phosphatase 63 Total Protein 6.7 Albumin 3.6 Globulin 3.1 Albumin/Globulin Ratio 1.2 10/06/16 10/06/16 10/06/16 00:48 01:55 08:47 WBC 12.6 H D 11.2 H RBC 4.56 5.01 Hgb 13.5 15.0 Hct 43.1 47.9 MCV 94.7 H 95.5 H MCH 29.7 29.9 MCHC 31.3 L 31.3 L RDW 15.1 H 15.7 H Plt Count 124 L D 142 MPV 8.6 8.6 Neut % (Auto) 76.4 H 81.5 H Lymph % (Auto) 7.9 L 6.1 L [place] % (Auto) 15.4 H 12.0 H Eos % (Auto) 0.0 0.0 Baso % (Auto) 0.3 0.4 Neut # 9.6 H 9.1 H Lymph # 1.0 0.7 L [place] # 1.9 H 1.3 H Eos # 0.0 0.0 Baso # 0.0 0.0 Neutrophils % (Manual) 82 H Band Neutrophils % 1 Lymphocytes % (Manual) 6 L Monocytes % (Manual) 11 H Platelet Estimate Slightly decreased L Large Platelets Present Poikilocytosis (manual Moderate Anisocytosis (manual) Slight Ovalocytes Slight [place] Cells Slight Acanthocytes (Spur) Slight Schistocytes Slight PT 23.2 H INR 2.23 H APTT 320.0 H* 34.9 H D Sodium 153 H Potassium 5.2 H Chloride 115 H Carbon Dioxide 17 L Anion Gap 26 H BUN 45 H Creatinine 1.5 Est GFR ( Amer) 58 Est GFR (Non-Af Amer) 48 Random Glucose 67 L Lactic Acid 4.1 H* Calcium 9.9 Total Bilirubin 2.6 H AST 1212 H ALT 732 H D Alkaline Phosphatase 63 Total Protein 6.9 Albumin 3.6 Globulin 3.3 Albumin/Globulin Ratio 1.1 Fingerstick Blood Sugar Results: 148 Review of Systems - Review of Systems Review of Systems: see HPI Critical Care Progress Note - Nutrition Nutrition: Nutrition Category Date Time Status NPO Diet [DIET] Diets 10/05/16 Lunch Active Assessment/Plan - Assessment and Plan (Free Text) Plan: 61 yo M w PMHx of CAD, '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 1) Lactic Acidosis -Likely Type B1 w/o setting of ischemia and presence of worsening LFTs & coags -Lactate currently 4.1 -BCx: Prelim neg 24hrs -UCx: Neg -f/u continuing labs -f/u GI Consult 2) High Anion Gap Metabolic Acidosis -Likely secondary to lactic acidosis 3) Systolic Heart Failure -Cardiac Echo: LV severely dilated, LV systolic fcn profoundly depressed, EF < 10%, severe MR, severe pulm HTN; LV apical thrombus is ruled out -CXR: no infiltrates, enlarged heart 4) Elevated Tbilirubin / LFTs -U/S Abd: Thickened gb wall w pericholecystic fluid & echogenic calculus w/in gb lumen. Mild intrahepatic biliary ductal dilation. -CTA: Cholelithiasis, highly suggestive of acute cholecystitis. -Worsening LFTs, from yesterday 952/541 to today 1212/732 -f/u labs -f/u GI Consult -f/u Hepatitis Panel -f/u Ammonia 5) Pulmonary embolism -Confirmed b/l LE DVTs -CTA: 1) Acute PE. Thrombus ID'ed in distal R main pulm artery, R middle, R lower lobes. Subsegmental emboli L lower lobe basilar segment. 2) Cholelithiasis, highly suggestive of acute cholecystitis. 3) Inflamm changes R hemicolon 4) Lg R inguinal hernia, w/o evidence of incarceration/obstruction -Heparin Drip; drip had been previously held due to elevated PTT, however that value has returned to medically treatable level -PTT most recently 34.9 -f/u Coags 6) Hypercalcemia -Receiving IVF which is helping to normalize the calcium values -Presently 9.9 -f/u Labs 7) Severe dehydration & poor PO intake -Managed, Receiving IV fluid 8) Altered Mental Status -Chronic, long standing history since CVA 9) DVT Prophylaxis -receiving Heparin Therapy for DVT/PE <Ebony Steele - Last Filed: 10/06/16 14:05> CCU Objective - Vital Signs / Intake & Output Vital Signs (Last 4 hours): Vital Signs Temp Pulse Resp BP Pulse Ox 10/06/16 13:00 108 H 28 H 101/77 94 L 10/06/16 12:00 98.3 F 103 H 14 98/60 L 99 10/06/16 10:30 98 H 22 113/79 99 Intake and Output (Last 8hrs): Intake & Output 10/05/16 10/06/16 10/06/16 22:59 06:59 14:59 Intake Total 1244 1200 500 Output Total 260 250 Balance 984 950 500 Intake: IV 1200 1200 500 Intake, Piggyback 44 Oral 0 0 Output: Urine 260 250 Urethral (Ivan) 260 250 - Medications Active Medications: Active Medications Generic Name Dose Route Start Last Admin Trade Name Vincent PRN Reason Stop Dose Admin Heparin Sodium/Sodium Chloride 250 mls @ 11 mls/hr 10/05/16 17:30 10/05/16 16: 15 Heparin 38200 Units/250ml 1/2 Normal Saline IV 11 mls/hr .[id number] [facility] Administration Protocol Lactated Ringer's 1,000 mls @ 75 mls/hr 10/06/16 10:15 10/06/16 13:36 Lactated Ringer's IV 75 mls/hr .[id number] [facility] Administration Piperacillin Sod/Tazobactam 100 mls @ 100 mls/hr 10/06/16 10:30 10/06/16 13:37 Sod 2.25 gm/ Sodium Chloride IVPB 100 mls/hr Q6 [facility] Administration - Patient Studies Lab Studies: Lab Studies 10/06/16 10/06/16 10/06/16 Range/Units 11:31 08:47 01:55 WBC 11.2 H (4.8-10.8) K/uL RBC 5.01 (4.40-5.90) Mil/uL Hgb 15.0 (12.0-18.0) g/dL Hct 47.9 (35.0-51.0) % MCV 95.5 H (80.0-94.0) fl MCH 29.9 (27.0-31.0) pg MCHC 31.3 L (33.0-37.0) g/dL RDW 15.7 H (11.5-14.5) % Plt Count 142 (130-400) K/uL MPV 8.6 (7.2-11.7) fl Neut % (Auto) 81.5 H (50.0-75.0) % Lymph % (Auto) 6.1 L (20.0-40.0) % [place] % (Auto) 12.0 H (0.0-10.0) % Eos % (Auto) 0.0 (0.0-4.0) % Baso % (Auto) 0.4 (0.0-2.0) % Neut # 9.1 H (1.8-7.0) K/uL Lymph # 0.7 L (1.0-4.3) K/uL [place] # 1.3 H (0.0-0.8) K/uL Eos # 0.0 (0.0-0.7) K/uL Baso # 0.0 (0.0-0.2) K/uL Neutrophils % (Manual) (42-75) % Band Neutrophils % (0-2) % Lymphocytes % (Manual) (20-50) % Monocytes % (Manual) (0-10) % Platelet Estimate (NORMAL) Large Platelets Poikilocytosis (manual Anisocytosis (manual) Ovalocytes [place] Cells Acanthocytes (Spur) Schistocytes PT 23.2 H (9.6-11.2) SECONDS INR 2.23 H (0.92-1.08) APTT 34.9 H D 320.0 H* (23.3-32.5) SECONDS Sodium 153 H (132-148) mmol/l Potassium 5.2 H (3.6-5.0) MMOL/L Chloride 115 H (98-107) mmol/L Carbon Dioxide 17 L (22-30) mmol/L Anion Gap 26 H (10-20) BUN 45 H (9-20) mg/dl Creatinine 1.5 (0.8-1.5) mg/dL Est GFR ( Amer) 58 Est GFR (Non-Af Amer) 48 Random Glucose 67 L (75-110) mg/dL Lactic Acid 4.1 H* (0.7-2.1) MMOL/L Calcium 9.9 (8.4-10.2) mg/dL Total Bilirubin 2.6 H (0.2-1.3) mg/dl AST 1212 H (17-59) U/L ALT 732 H D (21-72) U/L Alkaline Phosphatase 63 (38-126) U/L Ammonia < 9 L (16-60) umo/L Total Protein 6.9 (6.3-8.2) G/DL Albumin 3.6 (3.5-5.0) g/dL Globulin 3.3 (2.2-3.9) gm/dL Albumin/Globulin Ratio 1.1 (1.0-2.1) 10/06/16 10/06/16 10/05/16 Range/Units 00:48 00:15 22:14 WBC 12.6 H D (4.8-10.8) K/uL RBC 4.56 (4.40-5.90) Mil/uL Hgb 13.5 (12.0-18.0) g/dL Hct 43.1 (35.0-51.0) % MCV 94.7 H (80.0-94.0) fl MCH 29.7 (27.0-31.0) pg MCHC 31.3 L (33.0-37.0) g/dL RDW 15.1 H (11.5-14.5) % Plt Count 124 L D (130-400) K/uL MPV 8.6 (7.2-11.7) fl Neut % (Auto) 76.4 H (50.0-75.0) % Lymph % (Auto) 7.9 L (20.0-40.0) % [place] % (Auto) 15.4 H (0.0-10.0) % Eos % (Auto) 0.0 (0.0-4.0) % Baso % (Auto) 0.3 (0.0-2.0) % Neut # 9.6 H (1.8-7.0) K/uL Lymph # 1.0 (1.0-4.3) K/uL [place] # 1.9 H (0.0-0.8) K/uL Eos # 0.0 (0.0-0.7) K/uL Baso # 0.0 (0.0-0.2) K/uL Neutrophils % (Manual) 82 H (42-75) % Band Neutrophils % 1 (0-2) % Lymphocytes % (Manual) 6 L (20-50) % Monocytes % (Manual) 11 H (0-10) % Platelet Estimate Slightly decreased L (NORMAL) Large Platelets Present Poikilocytosis (manual Moderate Anisocytosis (manual) Slight Ovalocytes Slight [place] Cells Slight Acanthocytes (Spur) Slight Schistocytes Slight PT (9.6-11.2) SECONDS INR (0.92-1.08) APTT 320.0 H* D (23.3-32.5) SECONDS Sodium (132-148) mmol/l Potassium (3.6-5.0) MMOL/L Chloride (98-107) mmol/L Carbon Dioxide (22-30) mmol/L Anion Gap (10-20) BUN (9-20) mg/dl Creatinine (0.8-1.5) mg/dL Est GFR ( Amer) Est GFR (Non-Af Amer) Random Glucose (75-110) mg/dL Lactic Acid 4.8 H* (0.7-2.1) MMOL/L Calcium (8.4-10.2) mg/dL Total Bilirubin (0.2-1.3) mg/dl AST (17-59) U/L ALT (21-72) U/L Alkaline Phosphatase (38-126) U/L Ammonia (16-60) umo/L Total Protein (6.3-8.2) G/DL Albumin (3.5-5.0) g/dL Globulin (2.2-3.9) gm/dL Albumin/Globulin Ratio (1.0-2.1) 10/05/16 Range/Units 15:48 WBC (4.8-10.8) K/uL RBC (4.40-5.90) Mil/uL Hgb (12.0-18.0) g/dL Hct (35.0-51.0) % MCV (80.0-94.0) fl MCH (27.0-31.0) pg MCHC (33.0-37.0) g/dL RDW (11.5-14.5) % Plt Count (130-400) K/uL MPV (7.2-11.7) fl Neut % (Auto) (50.0-75.0) % Lymph % (Auto) (20.0-40.0) % [place] % (Auto) (0.0-10.0) % Eos % (Auto) (0.0-4.0) % Baso % (Auto) (0.0-2.0) % Neut # (1.8-7.0) K/uL Lymph # (1.0-4.3) K/uL [place] # (0.0-0.8) K/uL Eos # (0.0-0.7) K/uL Baso # (0.0-0.2) K/uL Neutrophils % (Manual) (42-75) % Band Neutrophils % (0-2) % Lymphocytes % (Manual) (20-50) % Monocytes % (Manual) (0-10) % Platelet Estimate (NORMAL) Large Platelets Poikilocytosis (manual Anisocytosis (manual) Ovalocytes [place] Cells Acanthocytes (Spur) Schistocytes PT (9.6-11.2) SECONDS INR (0.92-1.08) APTT 41.3 H (23.3-32.5) SECONDS Sodium 141 (132-148) mmol/l Potassium 4.9 (3.6-5.0) MMOL/L Chloride 108 H (98-107) mmol/L Carbon Dioxide 20 L (22-30) mmol/L Anion Gap 18 (10-20) BUN 40 H (9-20) mg/dl Creatinine 1.4 (0.8-1.5) mg/dL Est GFR ( Amer) > 60 Est GFR (Non-Af Amer) 52 Random Glucose 72 L (75-110) mg/dL Lactic Acid (0.7-2.1) MMOL/L Calcium 9.8 (8.4-10.2) mg/dL Total Bilirubin 2.7 H (0.2-1.3) mg/dl AST 952 H D (17-59) U/L ALT 541 H D (21-72) U/L Alkaline Phosphatase 63 (38-126) U/L Ammonia (16-60) umo/L Total Protein 6.7 (6.3-8.2) G/DL Albumin 3.6 (3.5-5.0) g/dL Globulin 3.1 (2.2-3.9) gm/dL Albumin/Globulin Ratio 1.2 (1.0-2.1) Laboratory Results - last 24 hr 10/05/16 10/05/16 10/06/16 15:48 22:14 00:15 WBC RBC Hgb Hct MCV MCH MCHC RDW Plt Count MPV Neut % (Auto) Lymph % (Auto) [place] % (Auto) Eos % (Auto) Baso % (Auto) Neut # Lymph # [place] # Eos # Baso # Neutrophils % (Manual) Band Neutrophils % Lymphocytes % (Manual) Monocytes % (Manual) Platelet Estimate Large Platelets Poikilocytosis (manual Anisocytosis (manual) Ovalocytes [place] Cells Acanthocytes (Spur) Schistocytes PT INR APTT 41.3 H 320.0 H* D Sodium 141 Potassium 4.9 Chloride 108 H Carbon Dioxide 20 L Anion Gap 18 BUN 40 H Creatinine 1.4 Est GFR ( Amer) > 60 Est GFR (Non-Af Amer) 52 Random Glucose 72 L Lactic Acid 4.8 H* Calcium 9.8 Total Bilirubin 2.7 H AST 952 H D ALT 541 H D Alkaline Phosphatase 63 Ammonia Total Protein 6.7 Albumin 3.6 Globulin 3.1 Albumin/Globulin Ratio 1.2 10/06/16 10/06/16 10/06/16 00:48 01:55 08:47 WBC 12.6 H D 11.2 H RBC 4.56 5.01 Hgb 13.5 15.0 Hct 43.1 47.9 MCV 94.7 H 95.5 H MCH 29.7 29.9 MCHC 31.3 L 31.3 L RDW 15.1 H 15.7 H Plt Count 124 L D 142 MPV 8.6 8.6 Neut % (Auto) 76.4 H 81.5 H Lymph % (Auto) 7.9 L 6.1 L [place] % (Auto) 15.4 H 12.0 H Eos % (Auto) 0.0 0.0 Baso % (Auto) 0.3 0.4 Neut # 9.6 H 9.1 H Lymph # 1.0 0.7 L [place] # 1.9 H 1.3 H Eos # 0.0 0.0 Baso # 0.0 0.0 Neutrophils % (Manual) 82 H Band Neutrophils % 1 Lymphocytes % (Manual) 6 L Monocytes % (Manual) 11 H Platelet Estimate Slightly decreased L Large Platelets Present Poikilocytosis (manual Moderate Anisocytosis (manual) Slight Ovalocytes Slight [place] Cells Slight Acanthocytes (Spur) Slight Schistocytes Slight PT 23.2 H INR 2.23 H APTT 320.0 H* 34.9 H D Sodium 153 H Potassium 5.2 H Chloride 115 H Carbon Dioxide 17 L Anion Gap 26 H BUN 45 H Creatinine 1.5 Est GFR ( Amer) 58 Est GFR (Non-Af Amer) 48 Random Glucose 67 L Lactic Acid 4.1 H* Calcium 9.9 Total Bilirubin 2.6 H AST 1212 H ALT 732 H D Alkaline Phosphatase 63 Ammonia Total Protein 6.9 Albumin 3.6 Globulin 3.3 Albumin/Globulin Ratio 1.1 10/06/16 11:31 WBC RBC Hgb Hct MCV MCH MCHC RDW Plt Count MPV Neut % (Auto) Lymph % (Auto) [place] % (Auto) Eos % (Auto) Baso % (Auto) Neut # Lymph # [place] # Eos # Baso # Neutrophils % (Manual) Band Neutrophils % Lymphocytes % (Manual) Monocytes % (Manual) Platelet Estimate Large Platelets Poikilocytosis (manual Anisocytosis (manual) Ovalocytes [place] Cells Acanthocytes (Spur) Schistocytes PT INR APTT Sodium Potassium Chloride Carbon Dioxide Anion Gap BUN Creatinine Est GFR ( Amer) Est GFR (Non-Af Amer) Random Glucose Lactic Acid Calcium Total Bilirubin AST ALT Alkaline Phosphatase Ammonia < 9 L Total Protein Albumin Globulin Albumin/Globulin Ratio Critical Care Progress Note - Nutrition Nutrition: Nutrition Category Date Time Status NPO Diet [DIET] Diets 10/05/16 Lunch Active Attending/Attestation - Attestation I have personally seen and examined this patient.: Yes I have fully participated in the care of the patient.: Yes I have reviewed all pertinent clinical information: Yes Notes (Text): 10/06/16 13:48 Patient seen and examined this morning. interviewed at bedside. This is a 61 year old male with PMH of CVA and some "heart disease" in 2008. Since then he changed from being a functional working man to being completely dependant. He is not able to speak a language properly, some words only neither he seems to understand completely, able to follow some commands for me when I showed him how to move his limbs and denies to have abdominal pain and it is very questionable if he has any. As per he is now here given one week of bilateral leg swelling and decreased appetite, he was also not able to swallow properly (pocketing food in the mouth). Labs remarkable for high INR (before initiation of heparin drip), high BUN/Cr and isolated elevation of LFT's on the rise with normal bilirrubin and alk phos values. Labs in 05/2016 are wnl, lactate is also high. There is no fever, wbc elevation, CT scan of the abdomen shows choledocolithiasis. Other studies remarkable for echocardiogram showing LV dilation with EF 10% and severe pulmonary HTN, RV is normal size, systolic function and thickness. I highly doubt patient has acute cholecystitis, there are no clinical sings of acute infection, no fever, no wbc count, no Rachel sign, no abdominal pain, lactate elevation is due to decrease clearance by the liver. There is NO ACUTE CHF EXACERBATION, LV dysfuction is chronic, CAD most be existing in this patient given findings of echocardiogram, RV size and function is wnl, so pulmonary hypertension is most likely NOT CHRONIC. On heparin drip for anticoagulation. Coagulopathy, INR/PT elevated on arrival to ER, prior value in 2016 wnl, this is most likely a reflection of the acute liver disfunction, ammonia less than 9 and hepatitis panel still not out. Discussed in person the case with Dr. Sam form GI/ ARF with decrease of HCO3 and elevated K, No KEE inhibitors, no losartan. Home meds: losartan, quitiapine, rivastigmine, loratadine, aspirin, MTV Spoke to and discussed advanced directives given poor quality of life.
[2016-10-06] MEDS: Levalbuterol 0.63 MG/3 ML Inhal Soln UD INH PRN (20:00)
[2016-10-06] MEDS ORDERED: Dextrose 50% SYRINGE Inj (50 ml) ONE (20:11)
[2016-10-06] MEDS ORDERED: Dextrose 50% SYRINGE Inj (50 ml) IVP ONE (20:17)
--- NOTE | 2016-10-06 22:17 | CP.PCM.CON ---
History of Present Illness - History of Present Illness History of Present Illness: GI consult requested by ICU attending- This is a 61 yo M w PMHx of CAD, CVA w R sided weakness in 2008, HTN, and HLD is admitted for 1 week for poor PO intake, and LE edema. Pt seen with in MICU. does not seem to have details regarding patients past medical condition. Pt is not vocal and has not been since previous CVA and does not walk. As per she is not aware that he had prior liver history. He was admitted with B/L LE edema and PE now on heparin gtt with supratherapeutic PTT. His CT abdomen with contrast shows normal liver contour but pericholecystic fluid and thickened GB. He has not had complain of RUQ pain as per . He was admitted with lactic acidosis and EF of 10% with moderate TR on ECHO. Review of Systems - Review of Systems Review of Systems: HPI extracted from the chart as patient is non verbal Past Patient History - Past Medical History & Family History Past Medical History?: Yes - Past Social History Smoking Status: Unknown If Ever Smoked - CARDIAC Hx Cardiac Disorders: Yes (HTN, high cholesterol, peripheral edema) - PULMONARY Hx Respiratory Disorders: No - NEUROLOGICAL Hx Neurological Disorder: Yes (CVA) - HEENT Hx HEENT Problems: No - RENAL Hx Chronic Kidney Disease: No - ENDOCRINE/METABOLIC Hx Endocrine Disorders: Yes (DM) - HEMATOLOGICAL/ONCOLOGICAL Hx Blood Disorders: No - INTEGUMENTARY Hx Dermatological Problems: No - MUSCULOSKELETAL/RHEUMATOLOGICAL Hx Musculoskeletal Disorders: Yes (Restless Leg Syndrome) Hx Falls: No - GASTROINTESTINAL Hx Gastrointestinal Disorders: Yes (CONSTIPATION) - GENITOURINARY/GYNECOLOGICAL Hx Genitourinary Disorders: No - PSYCHIATRIC Hx Psychophysiologic Disorder: No Hx Substance Use: No - SURGICAL HISTORY Hx Surgeries: No - ANESTHESIA Hx Anesthesia: No Meds Allergies/Adverse Reactions: Allergies Allergy/AdvReac Type Severity Reaction Status Date / Time No Known Allergies Allergy Verified 05/20/16 14:37 - Medications Medications: Current Medications Heparin Sodium/Sodium Chloride (Heparin 95773 Units/250ml 1/2 Normal Saline) 250 mls @ 11 mls/hr IV .[id number] CHERYL PRN Reason: Protocol Last Admin: 10/05/16 16:15 Dose: 11 mls/hr Piperacillin Sod/Tazobactam (Sod 2.25 gm/ Sodium Chloride) 100 mls @ 100 mls/ hr IVPB Q6 CHERYL Last Admin: 10/06/16 21:08 Dose: 100 mls/hr Ipratropium [place] (Atrovent) 0.5 mg IH Q8H PRN PRN Reason: sob/wheezing Levalbuterol HCl (Xopenex) 0.63 mg INH RQ8 PRN PRN Reason: Shortness of Breath Last Admin: 10/06/16 20:00 Dose: 0.63 mg Physical Exam - Constitutional Appears: Non-toxic, No Acute Distress - Head Exam Head Exam: ATRAUMATIC, NORMAL INSPECTION, NORMOCEPHALIC Additional comments: Anicteric sclera - Respiratory Exam Respiratory Exam: Clear to Auscultation Bilateral, NORMAL BREATHING PATTERN - Cardiovascular Exam Cardiovascular Exam: Bradycardia, RRR, +S1, +S2 - GI/Abdominal Exam GI & Abdominal Exam: Normal Bowel Sounds, Soft Additional comments: Non tender. No guarding - Extremities Exam Extremities exam: Positive for: normal inspection, pedal edema - Neurological Exam Neurological exam: Alert, Altered - Skin Skin Exam: Dry, Intact Results - Vital Signs Recent Vital Signs: Last Vital Signs Temp 98.1 F 10/06/16 16:00 Pulse 80 10/06/16 20:02 Resp 16 10/06/16 18:00 BP 101/73 10/06/16 20:09 Pulse Ox 97 10/06/16 18:00 - Labs Result Diagrams: 10/06/16 08:47 10/06/16 08:47 Labs: Laboratory Results - last 24 hr 10/05/16 10/06/16 10/06/16 22:14 00:15 00:48 WBC 12.6 H D RBC 4.56 Hgb 13.5 Hct 43.1 MCV 94.7 H MCH 29.7 MCHC 31.3 L RDW 15.1 H Plt Count 124 L D MPV 8.6 Neut % (Auto) 76.4 H Lymph % (Auto) 7.9 L [place] % (Auto) 15.4 H Eos % (Auto) 0.0 Baso % (Auto) 0.3 Neut # 9.6 H Lymph # 1.0 [place] # 1.9 H Eos # 0.0 Baso # 0.0 Neutrophils % (Manual) 82 H Band Neutrophils % 1 Lymphocytes % (Manual) 6 L Monocytes % (Manual) 11 H Platelet Estimate Slightly decreased L Large Platelets Present Poikilocytosis (manual Moderate Anisocytosis (manual) Slight Ovalocytes Slight Ivon Cells Slight Acanthocytes (Spur) Slight Schistocytes Slight PT INR APTT 320.0 H* D Sodium Potassium Chloride Carbon Dioxide Anion Gap BUN Creatinine Est GFR ( Amer) Est GFR (Non-Af Amer) POC Glucose (mg/dL) Random Glucose Lactic Acid 4.8 H* Calcium Total Bilirubin AST ALT Alkaline Phosphatase Ammonia Total Protein Albumin Globulin Albumin/Globulin Ratio Hepatitis A IgM Ab Hep Bs Antigen Hep B Core IgM Ab Hepatitis C Antibody 10/06/16 10/06/16 10/06/16 01:55 08:47 11:08 WBC 11.2 H RBC 5.01 Hgb 15.0 Hct 47.9 MCV 95.5 H MCH 29.9 MCHC 31.3 L RDW 15.7 H Plt Count 142 MPV 8.6 Neut % (Auto) 81.5 H Lymph % (Auto) 6.1 L [place] % (Auto) 12.0 H Eos % (Auto) 0.0 Baso % (Auto) 0.4 Neut # 9.1 H Lymph # 0.7 L [place] # 1.3 H Eos # 0.0 Baso # 0.0 Neutrophils % (Manual) Band Neutrophils % Lymphocytes % (Manual) Monocytes % (Manual) Platelet Estimate Large Platelets Poikilocytosis (manual Anisocytosis (manual) Ovalocytes Ivon Cells Acanthocytes (Spur) Schistocytes PT 23.2 H INR 2.23 H APTT 320.0 H* 34.9 H D Sodium 153 H Potassium 5.2 H Chloride 115 H Carbon Dioxide 17 L Anion Gap 26 H BUN 45 H Creatinine 1.5 Est GFR ( Amer) 58 Est GFR (Non-Af Amer) 48 POC Glucose (mg/dL) Random Glucose 67 L Lactic Acid 4.1 H* Calcium 9.9 Total Bilirubin 2.6 H AST 1212 H ALT 732 H D Alkaline Phosphatase 63 Ammonia Total Protein 6.9 Albumin 3.6 Globulin 3.3 Albumin/Globulin Ratio 1.1 Hepatitis A IgM Ab Negative Hep Bs Antigen Negative Hep B Core IgM Ab Negative Hepatitis C Antibody Negative 10/06/16 10/06/16 10/06/16 11:31 16:45 20:13 WBC RBC Hgb Hct MCV MCH MCHC RDW Plt Count MPV Neut % (Auto) Lymph % (Auto) [place] % (Auto) Eos % (Auto) Baso % (Auto) Neut # Lymph # [place] # Eos # Baso # Neutrophils % (Manual) Band Neutrophils % Lymphocytes % (Manual) Monocytes % (Manual) Platelet Estimate Large Platelets Poikilocytosis (manual Anisocytosis (manual) Ovalocytes Ivon Cells Acanthocytes (Spur) Schistocytes PT INR APTT 320.0 H* D Sodium Potassium Chloride Carbon Dioxide Anion Gap BUN Creatinine Est GFR ( Amer) Est GFR (Non-Af Amer) POC Glucose (mg/dL) 60 L Random Glucose Lactic Acid Calcium Total Bilirubin AST ALT Alkaline Phosphatase Ammonia < 9 L Total Protein Albumin Globulin Albumin/Globulin Ratio Hepatitis A IgM Ab Hep Bs Antigen Hep B Core IgM Ab Hepatitis C Antibody Assessment & Plan - Assessment and Plan (Free Text) Assessment: 61 yo M w PMHx of CAD, '09 CVA w R sided weakness, HTN, and HLD is admitted to the ICU for PE, and lactic acidosis. His cardiac function is at 10%. CT abdomen shows normal liver contour with normal platelets on admission. He has had increase in LFT which could be multifactorial due to sepsis and congestive hepatopathy from low cardiac function and right heart strain. Will send hepatitis and autoimmune seroliges for complete work up. Abdominal sonogram does not show choledocholithiasis. His TB is not high enough for acute liver function but mostly indicates parenchymal injury and congestion. Will contineu anti coagulation in setting of acute PE and DVT. Should monitor LFT closely and trend. Unable to monitor mental status as patient at baseline is confused. Plan: - Daily LFT and coag trend - Send hepatitis and autoimmune serologies - send ALY, AMA, IgG and anti smooth muscle - Avoid hepatotoxic medications - GI prophylaxis - Continue anti coagulation - will follow - rest of management for lactic acidosis and anion gap as per MICU - Date & Time Date: 10/06/16 Time: 22:00
[2016-10-07] MEDS ORDERED: Nitroglycerin 2% 1GM UD TOP ONE (00:33)
[2016-10-07 07:01] LABS: HEMATOCRIT 44.9 % (35.0-51.0); MEAN CELL VOLUME 95.3 fl (80.0-94.0); MEAN CORPUSCULAR HEMOGLOBIN 30.1 pg (27.0-31.0); MEAN CORPUSCULAR HGB CONC 31.6 g/dL (33.0-37.0); RED CELL DISTRIBUTION WIDTH 15.9 % (11.5-14.5); WHITE BLOOD COUNT 10.7 K/uL (4.8-10.8)
[2016-10-07 07:08] LABS: ALB/GLOB RATIO 1.1 (1.0-2.1); BILIRUBIN,TOTAL 2.4 mg/dl (0.2-1.3); CALCIUM 9.2 mg/dL (8.4-10.2); POTASSIUM 4.5 MMOL/L (3.6-5.0)
--- NOTE | 2016-10-07 07:22 | CP.CCUPN ---
CCU Subjective - Physician Review Subjective (Free Text): Pt seen and examined at bedside in ICU. Pt is alert, but not oriented. Due to AMS, despite assistance from hydraulic hammer operator, pt cannot answer any questions appropriately, including the full ROS questions. CCU Objective - Vital Signs / Intake & Output Vital Signs (Last 4 hours): Vital Signs Temp Pulse Resp BP Pulse Ox 10/07/16 06:00 106 H 39 H 111/70 97 10/07/16 04:00 98.6 F 104 H 35 H 101/65 100 Intake and Output (Last 8hrs): Intake & Output 10/06/16 10/07/16 10/07/16 22:59 06:59 14:59 Intake Total 500 Output Total 300 1300 Balance 200 -1300 Intake: IV 300 Intake, Piggyback 200 Oral 0 Output: Urine 300 1300 Urethral (Ivan) 300 1300 - Physical Exam Physical Exam Limitations: Positive for: Altered Mental Status Head: Positive for: Atraumatic, Normocephalic Pupils: Positive for: PERRL Extroacular Muscles: Positive for: EOMI Conjunctiva: Positive for: Icteric Mouth: Positive for: Dry Neck: Positive for: Trachea Midline. Negative for: MIDLINE TENDERNESS Respiratory/Chest: Positive for: Clear to Auscultation. Negative for: Wheezes, Decreased Breath Sounds, Rhonchi Cardiovascular: Positive for: Murmurs, Tachycardic Abdomen: Positive for: Tenderness. Negative for: Distention, Rebound, Guarding Genitourinary Male: Positive for: Hernias (reducible) Upper Extremity: Positive for: Normal Inspection. Negative for: Edema Lower Extremity: Positive for: Edema Neurological: Negative for: Speech Normal Skin: Positive for: Dry Psychiatric: Positive for: Alert, Other (orientation varies bw self and self & location) - Medications Active Medications: Active Medications Generic Name Dose Route Start Last Admin Trade Name Freq PRN Reason Stop Dose Admin Piperacillin Sod/Tazobactam 100 mls @ 100 mls/hr 10/06/16 10:30 10/07/16 03:58 Sod 2.25 gm/ Sodium Chloride IVPB 100 mls/hr Q6 CHERYL Administration Ipratropium [place] 0.5 mg 10/06/16 19:49 Atrovent IH Q8H PRN sob/wheezing Levalbuterol HCl 0.63 mg 10/06/16 19:48 10/06/16 20:00 Xopenex INH 0.63 mg RQ8 PRN Administration Shortness of Breath - Patient Studies Lab Studies: Lab Studies 10/07/16 10/07/16 10/06/16 Range/Units 06:08 04:50 22:00 WBC 10.7 (4.8-10.8) K/uL RBC 4.72 (4.40-5.90) Mil/uL Hgb 14.2 (12.0-18.0) g/dL Hct 44.9 (35.0-51.0) % MCV 95.3 H (80.0-94.0) fl MCH 30.1 (27.0-31.0) pg MCHC 31.6 L (33.0-37.0) g/dL RDW 15.9 H (11.5-14.5) % Plt Count 107 L D (130-400) K/uL MPV (7.2-11.7) fl Neut % (Auto) (50.0-75.0) % Lymph % (Auto) (20.0-40.0) % Mcdonald % (Auto) (0.0-10.0) % Eos % (Auto) (0.0-4.0) % Baso % (Auto) (0.0-2.0) % Neut # (1.8-7.0) K/uL Lymph # (1.0-4.3) K/uL Mcdonald # (0.0-0.8) K/uL Eos # (0.0-0.7) K/uL Baso # (0.0-0.2) K/uL PT (9.6-11.2) SECONDS INR (0.92-1.08) APTT (23.3-32.5) SECONDS Sodium (132-148) mmol/l Potassium (3.6-5.0) MMOL/L Chloride (98-107) mmol/L Carbon Dioxide (22-30) mmol/L Anion Gap (10-20) BUN (9-20) mg/dl Creatinine (0.8-1.5) mg/dL Est GFR ( Amer) Est GFR (Non-Af Amer) POC Glucose (mg/dL) 91 128 H (65-110) mg/dL Random Glucose (75-110) mg/dL Lactic Acid (0.7-2.1) MMOL/L Calcium (8.4-10.2) mg/dL Total Bilirubin (0.2-1.3) mg/dl AST (17-59) U/L ALT (21-72) U/L Alkaline Phosphatase (38-126) U/L Ammonia (16-60) umo/L Total Protein (6.3-8.2) G/DL Albumin (3.5-5.0) g/dL Globulin (2.2-3.9) gm/dL Albumin/Globulin Ratio (1.0-2.1) Hepatitis A IgM Ab (NEGATIVE) Hep Bs Antigen (NEGATIVE) Hep B Core IgM Ab (NEGATIVE) Hepatitis C Antibody (NEGATIVE) 10/06/16 10/06/16 10/06/16 Range/Units 20:13 16:45 11:31 WBC (4.8-10.8) K/uL RBC (4.40-5.90) Mil/uL Hgb (12.0-18.0) g/dL Hct (35.0-51.0) % MCV (80.0-94.0) fl MCH (27.0-31.0) pg MCHC (33.0-37.0) g/dL RDW (11.5-14.5) % Plt Count (130-400) K/uL MPV (7.2-11.7) fl Neut % (Auto) (50.0-75.0) % Lymph % (Auto) (20.0-40.0) % Mcdonald % (Auto) (0.0-10.0) % Eos % (Auto) (0.0-4.0) % Baso % (Auto) (0.0-2.0) % Neut # (1.8-7.0) K/uL Lymph # (1.0-4.3) K/uL Mcdonald # (0.0-0.8) K/uL Eos # (0.0-0.7) K/uL Baso # (0.0-0.2) K/uL PT (9.6-11.2) SECONDS INR (0.92-1.08) APTT 320.0 H* D (23.3-32.5) SECONDS Sodium (132-148) mmol/l Potassium (3.6-5.0) MMOL/L Chloride (98-107) mmol/L Carbon Dioxide (22-30) mmol/L Anion Gap (10-20) BUN (9-20) mg/dl Creatinine (0.8-1.5) mg/dL Est GFR ( Amer) Est GFR (Non-Af Amer) POC Glucose (mg/dL) 60 L (65-110) mg/dL Random Glucose (75-110) mg/dL Lactic Acid (0.7-2.1) MMOL/L Calcium (8.4-10.2) mg/dL Total Bilirubin (0.2-1.3) mg/dl AST (17-59) U/L ALT (21-72) U/L Alkaline Phosphatase (38-126) U/L Ammonia < 9 L (16-60) umo/L Total Protein (6.3-8.2) G/DL Albumin (3.5-5.0) g/dL Globulin (2.2-3.9) gm/dL Albumin/Globulin Ratio (1.0-2.1) Hepatitis A IgM Ab (NEGATIVE) Hep Bs Antigen (NEGATIVE) Hep B Core IgM Ab (NEGATIVE) Hepatitis C Antibody (NEGATIVE) 10/06/16 10/06/16 Range/Units 11:08 08:47 WBC 11.2 H (4.8-10.8) K/uL RBC 5.01 (4.40-5.90) Mil/uL Hgb 15.0 (12.0-18.0) g/dL Hct 47.9 (35.0-51.0) % MCV 95.5 H (80.0-94.0) fl MCH 29.9 (27.0-31.0) pg MCHC 31.3 L (33.0-37.0) g/dL RDW 15.7 H (11.5-14.5) % Plt Count 142 (130-400) K/uL MPV 8.6 (7.2-11.7) fl Neut % (Auto) 81.5 H (50.0-75.0) % Lymph % (Auto) 6.1 L (20.0-40.0) % Mcdonald % (Auto) 12.0 H (0.0-10.0) % Eos % (Auto) 0.0 (0.0-4.0) % Baso % (Auto) 0.4 (0.0-2.0) % Neut # 9.1 H (1.8-7.0) K/uL Lymph # 0.7 L (1.0-4.3) K/uL Mcdonald # 1.3 H (0.0-0.8) K/uL Eos # 0.0 (0.0-0.7) K/uL Baso # 0.0 (0.0-0.2) K/uL PT 23.2 H (9.6-11.2) SECONDS INR 2.23 H (0.92-1.08) APTT 34.9 H D (23.3-32.5) SECONDS Sodium 153 H (132-148) mmol/l Potassium 5.2 H (3.6-5.0) MMOL/L Chloride 115 H (98-107) mmol/L Carbon Dioxide 17 L (22-30) mmol/L Anion Gap 26 H (10-20) BUN 45 H (9-20) mg/dl Creatinine 1.5 (0.8-1.5) mg/dL Est GFR ( Amer) 58 Est GFR (Non-Af Amer) 48 POC Glucose (mg/dL) (65-110) mg/dL Random Glucose 67 L (75-110) mg/dL Lactic Acid 4.1 H* (0.7-2.1) MMOL/L Calcium 9.9 (8.4-10.2) mg/dL Total Bilirubin 2.6 H (0.2-1.3) mg/dl AST 1212 H (17-59) U/L ALT 732 H D (21-72) U/L Alkaline Phosphatase 63 (38-126) U/L Ammonia (16-60) umo/L Total Protein 6.9 (6.3-8.2) G/DL Albumin 3.6 (3.5-5.0) g/dL Globulin 3.3 (2.2-3.9) gm/dL Albumin/Globulin Ratio 1.1 (1.0-2.1) Hepatitis A IgM Ab Negative (NEGATIVE) Hep Bs Antigen Negative (NEGATIVE) Hep B Core IgM Ab Negative (NEGATIVE) Hepatitis C Antibody Negative (NEGATIVE) Laboratory Results - last 24 hr 10/06/16 10/06/16 10/06/16 08:47 11:08 11:31 WBC 11.2 H RBC 5.01 Hgb 15.0 Hct 47.9 MCV 95.5 H MCH 29.9 MCHC 31.3 L RDW 15.7 H Plt Count 142 MPV 8.6 Neut % (Auto) 81.5 H Lymph % (Auto) 6.1 L Mcdonald % (Auto) 12.0 H Eos % (Auto) 0.0 Baso % (Auto) 0.4 Neut # 9.1 H Lymph # 0.7 L Mcdonald # 1.3 H Eos # 0.0 Baso # 0.0 PT 23.2 H INR 2.23 H APTT 34.9 H D Sodium 153 H Potassium 5.2 H Chloride 115 H Carbon Dioxide 17 L Anion Gap 26 H BUN 45 H Creatinine 1.5 Est GFR ( Amer) 58 Est GFR (Non-Af Amer) 48 POC Glucose (mg/dL) Random Glucose 67 L Lactic Acid 4.1 H* Calcium 9.9 Total Bilirubin 2.6 H AST 1212 H ALT 732 H D Alkaline Phosphatase 63 Ammonia < 9 L Total Protein 6.9 Albumin 3.6 Globulin 3.3 Albumin/Globulin Ratio 1.1 Hepatitis A IgM Ab Negative Hep Bs Antigen Negative Hep B Core IgM Ab Negative Hepatitis C Antibody Negative 10/06/16 10/06/16 10/06/16 16:45 20:13 22:00 WBC RBC Hgb Hct MCV MCH MCHC RDW Plt Count MPV Neut % (Auto) Lymph % (Auto) Mcdonald % (Auto) Eos % (Auto) Baso % (Auto) Neut # Lymph # Mcdonald # Eos # Baso # PT INR APTT 320.0 H* D Sodium Potassium Chloride Carbon Dioxide Anion Gap BUN Creatinine Est GFR ( Amer) Est GFR (Non-Af Amer) POC Glucose (mg/dL) 60 L 128 H Random Glucose Lactic Acid Calcium Total Bilirubin AST ALT Alkaline Phosphatase Ammonia Total Protein Albumin Globulin Albumin/Globulin Ratio Hepatitis A IgM Ab Hep Bs Antigen Hep B Core IgM Ab Hepatitis C Antibody 10/07/16 10/07/16 04:50 06:08 WBC 10.7 RBC 4.72 Hgb 14.2 Hct 44.9 MCV 95.3 H MCH 30.1 MCHC 31.6 L RDW 15.9 H Plt Count 107 L D MPV Neut % (Auto) Lymph % (Auto) Mcdonald % (Auto) Eos % (Auto) Baso % (Auto) Neut # Lymph # Mcdonald # Eos # Baso # PT INR APTT Sodium Potassium Chloride Carbon Dioxide Anion Gap BUN Creatinine Est GFR ( Amer) Est GFR (Non-Af Amer) POC Glucose (mg/dL) 91 Random Glucose Lactic Acid Calcium Total Bilirubin AST ALT Alkaline Phosphatase Ammonia Total Protein Albumin Globulin Albumin/Globulin Ratio Hepatitis A IgM Ab Hep Bs Antigen Hep B Core IgM Ab Hepatitis C Antibody Fingerstick Blood Sugar Results: 148 Review of Systems - Review of Systems Review of Systems: see HPI Critical Care Progress Note - Nutrition Nutrition: Nutrition Category Date Time Status NPO Diet [DIET] Diets 10/05/16 Lunch Active Assessment/Plan - Assessment and Plan (Free Text) Plan: 61 yo M w PMHx of CAD, '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 1) Elevated Tbilirubin / LFTs -Liver dysfunction, LFTs continuing to elevate and Tbili still elevated -Unknown etiology -U/S Abd: Thickened gb wall w pericholecystic fluid & echogenic calculus w/in gb lumen. Mild intrahepatic biliary ductal dilation. -CTA: Cholelithiasis, highly suggestive of acute cholecystitis. -Worsening LFTs, now 1478/987 from yesterday 952/541 -Tbili: now 2.4 from yesterday 2.6 -Ammonia: < 9 -GI Onboard -f/u ALY, AMA, IgG and anti smooth muscle -f/u labs -f/u Hepatitis Panel -f/u MRCP 2) Pulmonary embolism -Confirmed b/l LE DVTs -CTA: Acute PE. Thrombus ID'ed in distal R main pulm artery, R middle, R lower lobes. Subsegmental emboli L lower lobe basilar segment. -Heparin Drip held due to PTT of 320.0 -f/u Coags 3) Systolic Heart Failure -Cardiac Echo: LV severely dilated, LV systolic fcn profoundly depressed, EF < 10%, severe MR, severe pulm HTN; LV apical thrombus is ruled out -CXR: no infiltrates, enlarged heart 4) Lactic Acidosis -Likely Type B1 w/o setting of ischemia and presence of worsening LFTs & coags --BCx: Prelim neg 48hrs -UCx: Neg -GI Onboard -f/u continuing labs -f/u Lactic acid value -f/u ABG value -f/u MRCP to determine if liver function will improve or not 5) Hypercalcemia -Resolved 6) High Anion Gap Metabolic Acidosis -Gap normalized 7) Altered Mental Status -Chronic, long standing history since CVA 8) DVT Prophylaxis -SCDs -Heparin Held due to elevated PTT
--- NOTE | 2016-10-07 09:11 | PN ---
DATE: 10/07/2016 The patient seen and examined. Interim events noted. Consults noted, appreciated. The patient toña ins in intensive care unit. Gastroenterology, surgery and cardiovascular surgeon interventions noted and apprec iated. The patient is awake, responsive, but not really communicative. Denies any specific complain t. No chest pain, no shortness of breath. PHYSICAL EXAMINATION: GENERAL: The patient is in no acute distress. VITAL SIGNS: Stable. HEART: S1, S2 normal, regular. LUNGS: Good bilateral air exchange, no rales or rhonchi. ABDOMEN: Soft, nontender. EXTREMITIES: Minimal edema, no calf swelling, no tenderness, no acute ischemia. CENTRAL NERVOUS SYSTEM: Essentially unchanged. DIAGNOSTIC DATA: Available reviewed. Telemetry monitoring does not show significant arrhythmia, exc ept sinus tachycardia. Liver function test remains elevated. Overfill, patient's general medical condition, although hemodynamically is stable, long-term function al prognosis remains poor. PLAN: As ordered. Case and plan discussed with patient and family. Chun Valdez MD cc: [id number] TT: 10/07/2016 09:10:36 Confirmation # [id number] Dictation # [id number]
--- NOTE | 2016-10-07 10:26 | CP.PCM.PN ---
Subjective - Date & Time of Evaluation Date of Evaluation: 10/07/16 Time of Evaluation: 10:00 - Subjective Subjective: Patient was seen and examined at the bedside. States that has no abdominal pain. Objective - Vital Signs/Intake and Output Vital Signs (last 24 hours): Temp Pulse Resp BP Pulse Ox 98.2 F 103 H 31 H 96/68 L 96 10/07/16 08:00 10/07/16 08:00 10/07/16 08:00 10/07/16 08:00 10/07/16 08:00 Intake and Output: 10/07/16 10/07/16 06:59 18:59 Intake Total 100 Output Total 1300 125 Balance -1200 -125 - Medications Medications: Current Medications Piperacillin Sod/Tazobactam (Sod 2.25 gm/ Sodium Chloride) 100 mls @ 100 mls/ hr IVPB Q6 CHERYL Last Admin: 10/07/16 03:58 Dose: 100 mls/hr Ipratropium [place] (Atrovent) 0.5 mg IH Q8H PRN PRN Reason: sob/wheezing Levalbuterol HCl (Xopenex) 0.63 mg INH RQ8 PRN PRN Reason: Shortness of Breath Last Admin: 10/06/16 20:00 Dose: 0.63 mg - Labs Labs: 10/07/16 04:50 10/07/16 04:50 PT 23.2 SECONDS (9.6-11.2) H 10/06/16 08:47 INR 2.23 (0.92-1.08) H 10/06/16 08:47 APTT 320.0 SECONDS (23.3-32.5) H* D 10/06/16 16:45 - Constitutional Appears: Non-toxic, No Acute Distress - Head Exam Head Exam: ATRAUMATIC, NORMAL INSPECTION, NORMOCEPHALIC - Eye Exam Eye Exam: EOMI, Normal appearance, PERRL Pupil Exam: NORMAL ACCOMODATION - ENT Exam ENT Exam: Mucous Membranes Moist, Normal Exam - Neck Exam Neck Exam: Full ROM, Normal Inspection - Respiratory Exam Respiratory Exam: NORMAL BREATHING PATTERN - Cardiovascular Exam Cardiovascular Exam: REGULAR RHYTHM, +S1, +S2 - GI/Abdominal Exam GI & Abdominal Exam: Soft, Normal Bowel Sounds Additional comments: Very mildly tender in the RUQ, ND, no rebound, no guarding, negative Rachel's sign - Rectal Exam Rectal Exam: Deferred - Neurological Exam Neurological Exam: Alert, Awake - Psychiatric Exam Psychiatric exam: Normal Affect, Normal Mood - Skin Skin Exam: Dry, Intact, Normal Color, Warm Assessment and Plan - Assessment and Plan (Free Text) Assessment: 61 y.o. male with elevated LFTs Plan: - Awaiting for MRCP - IV fluids - NPO - Continue antibiotics - Monitor LFTs - No general surgery intervention at present time - Continue care as per medical and ICU teams - Will follow
--- NOTE | 2016-10-07 11:31 | RAD ---
PROCEDURE: CHEST RADIOGRAPH, 1 VIEW HISTORY: SOB COMPARISON: 10/05/2016. FINDINGS: LUNGS: Right lower lobe infiltrate a new finding. PLEURA: No pneumothorax or pleural fluid seen. CARDIOVASCULAR: Cardiomegaly. No evidence of acute, significant cardiovascular disease. OSSEOUS STRUCTURES: No significant abnormalities. VISUALIZED UPPER ABDOMEN: Normal. OTHER FINDINGS: None. IMPRESSION: New right lower lobe infiltrate likely acute pneumonia.
[2016-10-07] MEDS: Levalbuterol 0.63 MG/3 ML Inhal Soln UD INH PRN ×2 (11:39→23:21)
--- NOTE | 2016-10-07 12:03 | RAD ---
HISTORY: f/u [facility] COMPARISON: 10/06/2016 FINDINGS: LUNGS: Increasing right lower lobe opacity, likely pneumonia. PLEURA: No significant pleural effusion identified, no pneumothorax apparent. CARDIOVASCULAR: Normal. OSSEOUS STRUCTURES: No significant abnormalities. VISUALIZED UPPER ABDOMEN: Normal. OTHER FINDINGS: None. IMPRESSION: Increasing right lower lobe opacity. No additional abnormality.
[2016-10-07 12:33] LABS: ABG ALLEN TEST YES; ARTERIAL BLOOD GAS HCO3 21.5 mmol/L (21-28); ARTERIAL BLOOD GAS O2 CAPACITY 19.1 mL/dL (16-24); ARTERIAL BLOOD GAS O2 CONTENT 19.1 ML/dL (15-23); ARTERIAL BLOOD GAS PH 7.46 (7.35-7.45); ARTERIAL BLOOD GAS PO2 120 mm/Hg (80-100); ARTERIAL BLOOD HGB O2 SAT 96.3 % (95.0-98.0); CARBOXYHEMOGLOBIN 2.5 % (0.5-1.5); HHB 0.2 % (0.0-5.0)
[2016-10-07 14:02] LABS: PARTIAL THROMBOPLASTIN TIME 48.1 SECONDS (23.3-32.5)
--- NOTE | 2016-10-07 15:54 | CON ---
DATE: 10/07/2016 REASON FOR CONSULTATION: Cardiomyopathy. The patient is a 61-year-old [place] male who has history of coronary artery disease, history of hyper tension, history of CVA, presented because of generalized weakness. The patient denies any syncope o r fall. The patient was clinically dehydrated upon evaluation in the Emergency Room. The patient wa s admitted with the diagnosis of septicemia. REVIEW OF SYSTEMS: The patient reported dysphagia. The patient denies any substernal chest pain. SOCIAL HISTORY: The patient is a nonsmoker. He lives with his . MEDICATIONS: Atrovent inhaler q. 4 hours, Zosyn 2.25 g intravenously q. 6 hours, Xopenex inhaler q. 8 hours. PHYSICAL EXAMINATION: The patient is a middle-aged male who is mildly tachypneic, but does not appear to be in acute distre ss. VITAL SIGNS: Blood pressure 112/71, heart rate 102, temperature 97.7, respirations 20. HENT: Normocephalic. NECK: No JVD. CHEST: Diffuse bilateral rhonchi. HEART: S1, S2 regular. EXTREMITIES: No edema. LABORATORY DATA: SMA-7: Sodium 150, potassium 4.5, chloride 119, CO2 of 16, glucose 89, BUN 59, cre atinine 1.8. Lactic acid on 10/05 was 4.8, and yesterday was 4.1. EKG on admission revealed wide QRS complex, and left bundle branch block. My own review of the EKG: It is sinus tachycardia at a rate of 104, and left bundle branch block. Echocardiograph study revea led markedly thin-walled apex. Apical and septal, as well as lateral wall were globular and akinetic . Other segments were severely hypokinetic. Ejection fraction below 10%. Echo enhancement was used to rule out LV thrombus, severe pulmonary hypertension. Chest x-ray revealed cardiomegaly with right lower lobe infiltrate. Venous Doppler of lower extremities revealed bilateral lower extremity thrombus. Chest and abdomen CT angio revealed acute pulmonary embolus. Thrombus identified in the distal right main pulmonary artery, as well as middle right lower lobe segment. Subsegmental emboli left lower l obe. Cholelithiasis with findings highly suggestive of acute cholecystitis. Inflammatory changes ri ght hemicolon. Large right inguinal hernia. LABORATORIES: SMA-7: Sodium 153, potassium 5.2, chloride 115, CO2 of 17, glucose 67, BUN 45, creati nine 1.5. CBC: WBC 10.7, hemoglobin 14.2, hematocrit 44.9, platelet count 107,000. ProBNP is 25,80 0. ASSESSMENT: 1. Bilateral deep venous thrombosis and acute pulmonary embolus. 2. Consider ischemic cardiomyopathy. 3. History of cerebrovascular accident. 4. Cholelithiasis with possible acute cholecystitis. 5. Lactic acidosis, rule out underlying sepsis. RECOMMENDATIONS: Resume intravenous heparin if there is no contraindication, and if there is one, co nsider IVC filter placement. The patient is not a suitable candidate for either Aldactone or KEE inhibitors, at least at this time . Beta blockers would not be justified in the presence of diffuse bilateral rhonchi and possible und erlying bronchospasm. Continue current antibiotics for possible right lower lobe pneumonia. I will review the anticoagulation regimen with the pivot end polisher. Jake Gong MD cc: [id number] TT: 10/07/2016 15:53:49 Confirmation # [id number] Dictation # [id number] garcía
--- NOTE | 2016-10-07 16:16 | CP.PCM.PN ---
Subjective - Date & Time of Evaluation Date of Evaluation: 10/07/16 Time of Evaluation: 16:12 - Subjective Subjective: RFV: Elevated LFTs S: Remains in ICU. Following commands. Denies abdominal pain. No signs of bleeding. No vomiting. Objective - Vital Signs/Intake and Output Vital Signs (last 24 hours): Temp Pulse Resp BP Pulse Ox 97.9 F 110 H 34 H 106/69 95 10/07/16 14:00 10/07/16 15:24 10/07/16 14:00 10/07/16 15:24 10/07/16 14:00 Intake and Output: 10/07/16 10/07/16 06:59 18:59 Intake Total 100 115 Output Total 1300 500 Balance -1200 -385 - Medications Medications: Current Medications Piperacillin Sod/Tazobactam (Sod 2.25 gm/ Sodium Chloride) 100 mls @ 100 mls/ hr IVPB Q6 CHERYL Last Admin: 10/07/16 10:51 Dose: 100 mls/hr Ipratropium [place] (Atrovent) 0.5 mg IH Q8H PRN PRN Reason: sob/wheezing Levalbuterol HCl (Xopenex) 0.63 mg INH RQ8 PRN PRN Reason: Shortness of Breath Last Admin: 10/07/16 11:39 Dose: 0.63 mg - Labs Labs: 10/07/16 04:50 10/07/16 04:50 PT 31.7 SECONDS (9.6-11.2) H* D 10/07/16 13:15 INR 3.05 (0.92-1.08) H 10/07/16 13:15 APTT 48.1 SECONDS (23.3-32.5) H 10/07/16 13:15 - Constitutional Appears: Chronically Ill - Head Exam Head Exam: ATRAUMATIC, NORMOCEPHALIC - Eye Exam Eye Exam: absent: Scleral icterus - Respiratory Exam Respiratory Exam: NORMAL BREATHING PATTERN. absent: Respiratory Distress - Cardiovascular Exam Cardiovascular Exam: +S1, +S2 - GI/Abdominal Exam GI & Abdominal Exam: Soft. absent: Distended, Tenderness - Neurological Exam Neurological Exam: Alert - Skin Skin Exam: Dry, Warm Assessment and Plan - Assessment and Plan (Free Text) Assessment: 61 year old male with h/o CAD, CVA w R sided weakness, HTN, and HLD is admitted to the ICU for PE/DVT, CHF, and Elevated LFTs. 1. Elevated LFTs Plan: - uncertain etiology, possibly multifactorial - ddx includes congestive hepatopathy, ischemic hepatitis, sepsis - viral hepatitis serologies negative - autoimmune serologies pending - monitor daily lfts and INR - monitor mental status - Avoid hepatotoxic medications - Continue anti coagulation - will follow
[2016-10-07] MEDS: Ipratropium 0.02% Inhal Soln (0.5 mg/2.5 ml) UD IH PRN (23:21)
[2016-10-08 05:09] LABS: ABG ALLEN TEST YES; ARTERIAL BLOOD GAS MODE HIGH FLOW; ARTERIAL BLOOD GAS PH 7.44 (7.35-7.45); ARTERIAL BLOOD GAS PO2 114 mm/Hg (80-100)
[2016-10-08] MEDS: Levalbuterol 0.63 MG/3 ML Inhal Soln UD INH PRN ×3 (05:15→19:14)
[2016-10-08] MEDS: Ipratropium 0.02% Inhal Soln (0.5 mg/2.5 ml) UD IH PRN ×3 (05:16→19:14)
[2016-10-08 06:00] LABS: PARTIAL THROMBOPLASTIN TIME 49.7 SECONDS (23.3-32.5)
[2016-10-08 07:01] LABS: BILIRUBIN,TOTAL 4.4 mg/dl (0.2-1.3); CALCIUM 9.2 mg/dL (8.4-10.2); POTASSIUM 4.5 MMOL/L (3.6-5.0)
--- NOTE | 2016-10-08 07:37 | CP.CCUPN ---
<Augustine Pacheco T - Last Filed: 10/08/16 11:06> CCU Subjective - Physician Review Subjective (Free Text): Pt seen and examined at bedside in ICU. Pt is not alert or oriented, but is responsive. Due to AMS, despite assistance from team physician, pt cannot answer any questions appropriately, including the full ROS questions. CCU Objective - Vital Signs / Intake & Output Vital Signs (Last 4 hours): Vital Signs Temp Pulse Resp BP Pulse Ox 10/08/16 06:00 120 H 30 H 127/49 L 95 10/08/16 04:55 39 H 10/08/16 04:00 98.3 F 99 H 31 H 101/67 100 Intake and Output (Last 8hrs): Intake & Output 10/07/16 10/08/16 10/08/16 22:59 06:59 14:59 Intake Total 110 Output Total 200 700 Balance -90 -700 Intake: IV 10 Intake, Piggyback 100 Output: Urine 200 700 Urethral (Ivan) 200 700 - Physical Exam Physical Exam Limitations: Positive for: Altered Mental Status Head: Positive for: Atraumatic, Normocephalic Pupils: Positive for: PERRL Extroacular Muscles: Positive for: EOMI Conjunctiva: Positive for: Icteric Mouth: Positive for: Dry Neck: Positive for: Trachea Midline. Negative for: MIDLINE TENDERNESS Respiratory/Chest: Positive for: Clear to Auscultation. Negative for: Wheezes, Decreased Breath Sounds, Rhonchi Cardiovascular: Positive for: Regular Rate and Rhythm, Murmurs Abdomen: Positive for: Tenderness. Negative for: Distention, Rebound, Guarding Genitourinary Male: Positive for: Hernias (reducible) Upper Extremity: Positive for: Normal Inspection. Negative for: Edema Lower Extremity: Positive for: Edema Neurological: Negative for: Speech Normal Skin: Positive for: Dry Psychiatric: Positive for: Alert, Other (orientation varies bw self and self & location) - Medications Active Medications: Active Medications Generic Name Dose Route Start Last Admin Trade Name Freq PRN Reason Stop Dose Admin Piperacillin Sod/Tazobactam 100 mls @ 100 mls/hr 10/06/16 10:30 10/08/16 05:10 Sod 2.25 gm/ Sodium Chloride IVPB 100 mls/hr Q6 CHERYL Administration Ipratropium [place] 0.5 mg 10/06/16 19:49 10/08/16 05:16 Atrovent IH 0.5 mg Q8H PRN Administration sob/wheezing Levalbuterol HCl 0.63 mg 10/06/16 19:48 10/08/16 05:15 Xopenex INH 0.63 mg RQ8 PRN Administration Shortness of Breath - Patient Studies Lab Studies: Microbiology Studies 10/05/16 15:11 MRSA Culture (Admit) - Final Naris MRSA NOT DETECTED Lab Studies 10/08/16 10/08/16 10/07/16 Range/Units 05:15 05:02 23:10 PT 28.6 H (9.6-11.2) SECONDS INR 2.75 H (0.92-1.08) APTT 49.7 H (23.3-32.5) SECONDS Fibrinogen (200-400) mg/dl pCO2 28 L (35-45) mm/Hg pO2 114 H (80-100) mm/Hg HCO3 22.0 (21-28) mmol/L ABG pH 7.44 (7.35-7.45) ABG Total CO2 19.9 L (22-28) mmol/L ABG O2 Saturation 99.5 H (95-98) % ABG O2 Content (15-23) ML/dL ABG Base Excess -3.8 L (-2.0-3.0) mmol/L ABG Hemoglobin (11.7-17.4) g/dL ABG Carboxyhemoglobin (0.5-1.5) % POC ABG HHb (Measured) (0.0-5.0) % ABG Methemoglobin (0.0-3.0) % ABG O2 Capacity (16-24) mL/dL [place] Test Yes ABG Potassium 4.1 (3.6-5.2) mmol/L A-a O2 Difference 136.0 mm/Hg Hgb O2 Saturation (95.0-98.0) % Glucose 119 H (75-110) mg/dL Lactate 3.3 H (0.7-2.1) mmol/L Vent Mode High flow FiO2 40.0 % Blood Gas Comments Crit Value Called To Crit Value Called By Crit Value Read Back Blood Gas Notified Time 509 Sodium 159 H 153.0 H (132-148) mmol/l Potassium 4.5 (3.6-5.0) MMOL/L Chloride 124 H 130.0 H (98-107) mmol/L Carbon Dioxide 18 L (22-30) mmol/L Anion Gap 22 H (10-20) BUN 64 H (9-20) mg/dl Creatinine 1.7 H (0.8-1.5) mg/dL Est GFR ( Amer) 50 Est GFR (Non-Af Amer) 41 POC Glucose (mg/dL) 106 (65-110) mg/dL Random Glucose 113 H (75-110) mg/dL Lactic Acid (0.7-2.1) MMOL/L Calcium 9.2 (8.4-10.2) mg/dL Total Bilirubin 4.4 H (0.2-1.3) mg/dl AST 1109 H (17-59) U/L ALT 917 H (21-72) U/L Alkaline Phosphatase 58 (38-126) U/L Total Protein 6.0 L (6.3-8.2) G/DL Albumin 3.0 L (3.5-5.0) g/dL Globulin 2.9 (2.2-3.9) gm/dL Albumin/Globulin Ratio 1.0 (1.0-2.1) Arterial Blood Potassium 4.1 (3.6-5.2) mmol/L 10/07/16 10/07/16 Range/Units 13:15 12:31 PT 31.7 H* D (9.6-11.2) SECONDS INR 3.05 H (0.92-1.08) APTT 48.1 H (23.3-32.5) SECONDS Fibrinogen 61 L* (200-400) mg/dl pCO2 25 L (35-45) mm/Hg pO2 120 H (80-100) mm/Hg HCO3 21.5 (21-28) mmol/L ABG pH 7.46 H (7.35-7.45) ABG Total CO2 18.6 L (22-28) mmol/L ABG O2 Saturation 99.8 H (95-98) % ABG O2 Content 19.1 (15-23) ML/dL ABG Base Excess -4.3 L (-2.0-3.0) mmol/L ABG Hemoglobin 14.0 (11.7-17.4) g/dL ABG Carboxyhemoglobin 2.5 H (0.5-1.5) % POC ABG HHb (Measured) 0.2 (0.0-5.0) % ABG Methemoglobin 1.0 (0.0-3.0) % ABG O2 Capacity 19.1 (16-24) mL/dL [place] Test Yes ABG Potassium (3.6-5.2) mmol/L A-a O2 Difference 134.0 mm/Hg Hgb O2 Saturation 96.3 (95.0-98.0) % Glucose (75-110) mg/dL Lactate (0.7-2.1) mmol/L Vent Mode FiO2 40.0 % Blood Gas Comments Lactate 2.6 Crit Value Called To marylou Villa Crit Value Called By 203 Crit Value Read Back Y Blood Gas Notified Time 1232 Sodium (132-148) mmol/l Potassium (3.6-5.0) MMOL/L Chloride (98-107) mmol/L Carbon Dioxide (22-30) mmol/L Anion Gap (10-20) BUN (9-20) mg/dl Creatinine (0.8-1.5) mg/dL Est GFR ( Amer) Est GFR (Non-Af Amer) POC Glucose (mg/dL) (65-110) mg/dL Random Glucose (75-110) mg/dL Lactic Acid 2.6 H (0.7-2.1) MMOL/L Calcium (8.4-10.2) mg/dL Total Bilirubin (0.2-1.3) mg/dl AST (17-59) U/L ALT (21-72) U/L Alkaline Phosphatase (38-126) U/L Total Protein (6.3-8.2) G/DL Albumin (3.5-5.0) g/dL Globulin (2.2-3.9) gm/dL Albumin/Globulin Ratio (1.0-2.1) Arterial Blood Potassium (3.6-5.2) mmol/L Laboratory Results - last 24 hr 10/07/16 10/07/16 10/07/16 12:31 13:15 23:10 PT 31.7 H* D INR 3.05 H APTT 48.1 H Fibrinogen 61 L* pCO2 25 L pO2 120 H HCO3 21.5 ABG pH 7.46 H ABG Total CO2 18.6 L ABG O2 Saturation 99.8 H ABG O2 Content 19.1 ABG Base Excess -4.3 L ABG Hemoglobin 14.0 ABG Carboxyhemoglobin 2.5 H POC ABG HHb (Measured) 0.2 ABG Methemoglobin 1.0 ABG O2 Capacity 19.1 [place] Test Yes ABG Potassium A-a O2 Difference 134.0 Hgb O2 Saturation 96.3 Sodium Chloride Glucose Lactate Vent Mode FiO2 40.0 Blood Gas Comments Lactate 2.6 Crit Value Called To marylou Villa Crit Value Called By 203 Crit Value Read Back Y Blood Gas Notified Time 1232 Potassium Carbon Dioxide Anion Gap BUN Creatinine Est GFR ( Amer) Est GFR (Non-Af Amer) POC Glucose (mg/dL) 106 Random Glucose Lactic Acid 2.6 H Calcium Total Bilirubin AST ALT Alkaline Phosphatase Total Protein Albumin Globulin Albumin/Globulin Ratio Arterial Blood Potassium 10/08/16 10/08/16 05:02 05:15 PT 28.6 H INR 2.75 H APTT 49.7 H Fibrinogen pCO2 28 L pO2 114 H HCO3 22.0 ABG pH 7.44 ABG Total CO2 19.9 L ABG O2 Saturation 99.5 H ABG O2 Content ABG Base Excess -3.8 L ABG Hemoglobin ABG Carboxyhemoglobin POC ABG HHb (Measured) ABG Methemoglobin ABG O2 Capacity [place] Test Yes ABG Potassium 4.1 A-a O2 Difference 136.0 Hgb O2 Saturation Sodium 153.0 H 159 H Chloride 130.0 H 124 H Glucose 119 H Lactate 3.3 H Vent Mode High flow FiO2 40.0 Blood Gas Comments Crit Value Called To Crit Value Called By Crit Value Read Back Blood Gas Notified Time 509 Potassium 4.5 Carbon Dioxide 18 L Anion Gap 22 H BUN 64 H Creatinine 1.7 H Est GFR ( Amer) 50 Est GFR (Non-Af Amer) 41 POC Glucose (mg/dL) Random Glucose 113 H Lactic Acid Calcium 9.2 Total Bilirubin 4.4 H AST 1109 H ALT 917 H Alkaline Phosphatase 58 Total Protein 6.0 L Albumin 3.0 L Globulin 2.9 Albumin/Globulin Ratio 1.0 Arterial Blood Potassium 4.1 Fingerstick Blood Sugar Results: 148 Review of Systems - Review of Systems Review of Systems: see HPI Critical Care Progress Note - Nutrition Nutrition: Nutrition Category Date Time Status NPO Diet [DIET] Diets 10/05/16 Lunch Active Assessment/Plan - Assessment and Plan (Free Text) Plan: 61 yo M w PMHx of CAD, ' CVA w R sided weakness, HTN, and HLD is admitted to the ICU for worsening liver functions, DVT w PE, and lactic acidosis. 1) Elevated Tbilirubin / LFTs -Liver dysfunction, LFTs elevated and Tbili still elevated -Cholecystitis w hepatic bile retention VS congestion from Heart Failure VS unknown etiology -Tbili: 4.4, increased from 2.4 yesterday -LFTs: 1109/917 -U/S Abd: Thickened gb wall w pericholecystic fluid & echogenic calculus w/in gb lumen. Mild intrahepatic biliary ductal dilation. -CTA: Cholelithiasis, highly suggestive of acute cholecystitis. -GI Onboard -f/u labs -f/u MRCP, awaiting normalizing sodium and amenable mentation for procedure 2) Pulmonary embolism -Confirmed b/l LE DVTs -CTA: Acute PE. Thrombus ID'ed in distal R main pulm artery, R middle, R lower lobes. Subsegmental emboli L lower lobe basilar segment. -Heparin Drip held due quickly uncontrolled PTT -PT/INR/PTT: 28.6/2.75/49.7 -Fibrinogen: 62 (L) -f/u Coags -f/u IR regarding IVC filter -f/u Hem/Onc 3) Hypernatremia -Na 159 today, 150 yesterday -D5W 50cc/hr -f/u labs 4) Systolic Heart Failure -Cardiac Echo: LV severely dilated, LV systolic fcn profoundly depressed, EF < 10%, severe MR, severe pulm HTN; LV apical thrombus is ruled out -CXR: no infiltrates, enlarged heart 5) Lactic Acidosis -Likely Type B1 w/o setting of ischemia and presence of worsening LFTs & coags --BCx: Prelim neg 48hrs -UCx: Neg -GI Onboard -f/u continuing labs -f/u ABG value -f/u MRCP 6) Altered Mental Status -Chronic, long standing history since CVA 7) DVT Prophylaxis -SCDs -Heparin Held due to elevated PTT <Gurpreet Zee - Last Filed: 10/08/16 12:31> CCU Subjective - Physician Review Subjective (Free Text): Attestation: Patient seen and examined at the bedside with Resident Dr. Anu Pacheco; and I agree with his outline of plans and management documented below as discussed on AM rounds reflecting my review of all applicable clinical data, and participation in the care of the patient throughout the day in ICU; today, October 08, 2016.
[2016-10-08 07:40] LABS: HEMATOCRIT 45.1 % (35.0-51.0); MEAN CORPUSCULAR HEMOGLOBIN 29.9 pg (27.0-31.0); MEAN CORPUSCULAR HGB CONC 31.5 g/dL (33.0-37.0); RED CELL DISTRIBUTION WIDTH 15.6 % (11.5-14.5); WHITE BLOOD COUNT 13.7 K/uL (4.8-10.8)
--- NOTE | 2016-10-08 09:16 | CP.PCM.PN ---
<Jomar Stoll - Last Filed: 10/08/16 09:19> Subjective - Date & Time of Evaluation Date of Evaluation: 10/08/16 Time of Evaluation: 07:10 - Subjective Subjective: Gen Surg: Dr. Sánchez Patient seen and examined. Denies abdominal pain. Objective - Vital Signs/Intake and Output Vital Signs (last 24 hours): Temp Pulse Resp BP Pulse Ox 97.7 F 107 H 34 H 115/81 100 10/08/16 08:00 10/08/16 08:00 10/08/16 08:50 10/08/16 08:00 10/08/16 08:00 Intake and Output: 10/08/16 10/08/16 06:59 18:59 Intake Total 10 Output Total 700 Balance -700 10 - Medications Medications: Current Medications Piperacillin Sod/Tazobactam (Sod 2.25 gm/ Sodium Chloride) 100 mls @ 100 mls/ hr IVPB Q6 CHERYL Last Admin: 10/08/16 05:10 Dose: 100 mls/hr Ipratropium [place] (Atrovent) 0.5 mg IH Q8H PRN PRN Reason: sob/wheezing Last Admin: 10/08/16 08:46 Dose: 0.5 mg Levalbuterol HCl (Xopenex) 0.63 mg INH RQ8 PRN PRN Reason: Shortness of Breath Last Admin: 10/08/16 08:46 Dose: 0.63 mg - Labs Labs: 10/08/16 05:15 10/08/16 05:15 PT 28.6 SECONDS (9.6-11.2) H 10/08/16 05:15 INR 2.75 (0.92-1.08) H 10/08/16 05:15 APTT 49.7 SECONDS (23.3-32.5) H 10/08/16 05:15 - Constitutional Appears: No Acute Distress - Head Exam Head Exam: NORMOCEPHALIC - Eye Exam Eye Exam: EOMI - Respiratory Exam Additional comments: tachypneic - Cardiovascular Exam Cardiovascular Exam: Tachycardia, +S1, +S2 - GI/Abdominal Exam GI & Abdominal Exam: Soft - Neurological Exam Neurological Exam: Alert, Awake - Psychiatric Exam Psychiatric exam: Normal Mood - Skin Skin Exam: Dry, Intact, Warm Assessment and Plan - Assessment and Plan (Free Text) Assessment: 61 y.o. male with elevated LFTs - Unable to tolerate MRCP -Will consider HIDA scan - NPO - IVF - Continue antibiotics - LFTs trending up -F/u GI recs - No general surgery intervention at present time - Continue care as per medical and ICU teams - Will follow <Murray Sánchez - Last Filed: 10/08/16 11:56> Subjective - Date & Time of Evaluation Date of Evaluation: 10/08/16 Time of Evaluation: 10:40 - Subjective Subjective: Patient was seen and examined at the bedside. Agree with resident's note above. Objective - Vital Signs/Intake and Output Vital Signs (last 24 hours): Temp Pulse Resp BP Pulse Ox 97.7 F 101 H 30 H 122/49 L 100 10/08/16 08:00 10/08/16 09:51 10/08/16 11:29 10/08/16 09:51 10/08/16 09:51 Intake and Output: 10/08/16 10/08/16 06:59 18:59 Intake Total 110 Output Total 700 Balance -700 110 - Medications Medications: Current Medications Piperacillin Sod/Tazobactam (Sod 2.25 gm/ Sodium Chloride) 100 mls @ 100 mls/ hr IVPB Q6 CHERYL Last Admin: 10/08/16 09:40 Dose: 100 mls/hr Dextrose (Dextrose 5% In Water 1000 Ml) 1,000 mls @ 50 mls/hr IV .Q20H CHERYL Stop: 10/09/16 10:46 Ipratropium [place] (Atrovent) 0.5 mg IH Q8H PRN PRN Reason: sob/wheezing Last Admin: 10/08/16 08:46 Dose: 0.5 mg Levalbuterol HCl (Xopenex) 0.63 mg INH RQ8 PRN PRN Reason: Shortness of Breath Last Admin: 10/08/16 08:46 Dose: 0.63 mg - Labs Labs: 10/08/16 05:15 10/08/16 05:15 PT 28.6 SECONDS (9.6-11.2) H 10/08/16 05:15 INR 2.75 (0.92-1.08) H 10/08/16 05:15 APTT 49.7 SECONDS (23.3-32.5) H 10/08/16 05:15 Assessment and Plan - Assessment and Plan (Free Text) Plan: - No general surgery intervention at present time - GI follow up - Continue care as per ICU team - Patient was d/w Dr. Zee
[2016-10-08] MEDS ORDERED: Dextrose 5%/0.9% NS 1,000 ML IV SCH (10:15)
--- NOTE | 2016-10-08 10:42 | PN ---
DATE: 10/08/2016 The patient seen and examined. Interim events noted. Consults noted, appreciated. Surgery, intensi vist, cardiology consults and interventions noted and appreciated. The patient remains in intensive care unit. The patient is awake, responsive. Denies any specific medical complaints. The patient i s not a good historian. Denies any chest pain or shortness of breath. PHYSICAL EXAMINATION: GENERAL: The patient is in no acute distress. VITAL SIGNS: Stable. HEART: S1, S2 normal, regular. LUNGS: Good bilateral air exchange. ABDOMEN: Soft, nontender. EXTREMITIES: No calf swelling, no tenderness, no acute ischemia. CENTRAL NERVOUS SYSTEM: Essentially unchanged. DIAGNOSTIC DATA: Available diagnostic data reviewed. Telemetry monitoring does not reveal significa nt arrhythmias. Overall, the patient's general medical condition is hemodynamically stable, but chcf prognosis re josephine poor due to advanced cardiac and liver conditions. PLAN: As ordered. Chun Valdez MD cc: [id number] TT: 10/08/2016 10:41:44 Confirmation # [id number] Dictation # [id number] tn
[2016-10-08 11:57] LABS: THYROID STIMULATING HORMONE 1.97 mIU/ML (0.46-4.68)
--- NOTE | 2016-10-08 12:59 | CP.PCM.PN ---
Subjective - Date & Time of Evaluation Date of Evaluation: 10/08/16 Time of Evaluation: 09:00 - Subjective Subjective: Seen at bedside. Confused. No overnight events Objective - Vital Signs/Intake and Output Vital Signs (last 24 hours): Temp Pulse Resp BP Pulse Ox 97.7 F 101 H 30 H 122/49 L 100 10/08/16 08:00 10/08/16 09:51 10/08/16 11:29 10/08/16 09:51 10/08/16 09:51 Intake and Output: 10/08/16 10/08/16 06:59 18:59 Intake Total 110 Output Total 700 Balance -700 110 - Medications Medications: Current Medications Piperacillin Sod/Tazobactam (Sod 2.25 gm/ Sodium Chloride) 100 mls @ 100 mls/ hr IVPB Q6 CHERYL Last Admin: 10/08/16 09:40 Dose: 100 mls/hr Dextrose (Dextrose 5% In Water 1000 Ml) 1,000 mls @ 50 mls/hr IV .Q20H CHERYL Stop: 10/09/16 10:46 Last Admin: 10/08/16 12:12 Dose: 50 mls/hr Ipratropium [place] (Atrovent) 0.5 mg IH Q8H PRN PRN Reason: sob/wheezing Last Admin: 10/08/16 08:46 Dose: 0.5 mg Levalbuterol HCl (Xopenex) 0.63 mg INH RQ8 PRN PRN Reason: Shortness of Breath Last Admin: 10/08/16 08:46 Dose: 0.63 mg - Labs Labs: 10/08/16 05:15 10/08/16 05:15 PT 28.6 SECONDS (9.6-11.2) H 10/08/16 05:15 INR 2.75 (0.92-1.08) H 10/08/16 05:15 APTT 49.7 SECONDS (23.3-32.5) H 10/08/16 05:15 - Constitutional Appears: Well, Non-toxic, No Acute Distress - Eye Exam Eye Exam: EOMI, PERRL, Scleral icterus - Respiratory Exam Respiratory Exam: Clear to Ausculation Bilateral, NORMAL BREATHING PATTERN - Cardiovascular Exam Cardiovascular Exam: REGULAR RHYTHM, +S1, +S2. absent: Murmur - GI/Abdominal Exam GI & Abdominal Exam: Soft, Normal Bowel Sounds. absent: Tenderness - Neurological Exam Neurological Exam: Alert, Awake Assessment and Plan - Assessment and Plan (Free Text) Assessment: 61 year old male with h/o CAD, CVA w R sided weakness, HTN, and HLD is admitted to the ICU for PE/DVT, CHF, and Elevated LFTs. Plan: - uncertain etiology, possibly multifactorial - ddx includes congestive hepatopathy, ischemic hepatitis, sepsis - viral hepatitis serologies negative - autoimmune serologies pending - monitor daily lfts and INR - monitor mental status - Avoid hepatotoxic medications - Continue anti coagulation - will follow
--- NOTE | 2016-10-08 14:03 | PN ---
DATE: 10/08/2016 The patient appears comfortable, in no apparent distress. No chest pain or shortness of breath repor seun. The patient's at the bedside was spoken to. The patient according to never had cardi ac catheterization or coronary intervention in the past. He is being followed by Dr. Melendez in his pr ivate office. PHYSICAL EXAMINATION: VITAL SIGNS: Blood pressure 122/49, heart rate 101, temperature 97.7, respirations 27. HEENT: Normocephalic. NECK: No JVD. CHEST: Bilateral rhonchi. HEART: S1, S2 regular. EXTREMITIES: No edema. LABORATORIES: CBC: WBC 13.7, hemoglobin 14.2, hematocrit 45.1, platelet count 73,000. This is a [place] 50% drop in the platelet count since admission, it was 149,000. SMA-7: Sodium 159, potassium 4 .5, chloride 124, CO2 of 18, glucose 113, BUN 63, creatinine 1.7. Yesterday's lactic acid was 5.7. ASSESSMENT: 1. Bilateral deep venous thrombosis and acute pulmonary embolus. 2. Ischemic cardiomyopathy. 3. Cholelithiasis with acute cholecystitis. 4. Thrombocytopenia. 5. Lactic acidosis. 6. History of cerebrovascular accident. RECOMMENDATIONS: Continue current IV Zosyn at 2.25 grams q.6 hours. Continue Xopenex and Atrovent. Consider administering argatroban. Jake Gong MD cc: [id number] TT: 10/08/2016 14:03:13 Confirmation # [id number] Dictation # [id number]
[2016-10-08 14:47] LABS: ABG ALLEN TEST YES; ARTERIAL BLOOD GAS HCO3 24.8 mmol/L (21-28); ARTERIAL BLOOD GAS PH 7.47 (7.35-7.45); ARTERIAL BLOOD GAS PO2 104 mm/Hg (80-100)
--- NOTE | 2016-10-08 21:58 | CP.PCM.CON ---
History of Present Illness - History of Present Illness History of Present Illness: 61 year old male with a history of CAD, CVA, admitted with progressive fatigue and dehydration secondary to possible sepsis, currently in DIC with B/L LE DVTs and PE. The patient is currently confused and I am unable to obtain further history from the patient. Review of his records shows highly variable coagulopathy on heparin with progressive thrombocytopenia and low fibrinogen. Imaging reveals b/l DVTs and PE. Heparin has been discontinued. Past medical, surgical, family, social history cannot be obtained Allergies: Per documentation NKA Review of systems cannot be obtained Past Patient History - Past Medical History & Family History Past Medical History?: Yes - Past Social History Smoking Status: Unknown If Ever Smoked - CARDIAC Hx Cardiac Disorders: Yes Hx Hypertension: Yes - PULMONARY Hx Respiratory Disorders: No - NEUROLOGICAL HX Cerebrovascular Accident: Yes - HEENT Hx HEENT Problems: No - RENAL Hx Chronic Kidney Disease: No - ENDOCRINE/METABOLIC Hx Endocrine Disorders: Yes (DM) - HEMATOLOGICAL/ONCOLOGICAL Hx Blood Disorders: No - INTEGUMENTARY Hx Dermatological Problems: No - MUSCULOSKELETAL/RHEUMATOLOGICAL Hx Musculoskeletal Disorders: Yes (Restless Leg Syndrome) Hx Falls: No - GASTROINTESTINAL Hx Gastrointestinal Disorders: Yes (CONSTIPATION) - GENITOURINARY/GYNECOLOGICAL Hx Genitourinary Disorders: No - PSYCHIATRIC Hx Psychophysiologic Disorder: No Hx Substance Use: No - SURGICAL HISTORY Hx Surgeries: No - ANESTHESIA Hx Anesthesia: No Meds Allergies/Adverse Reactions: Allergies Allergy/AdvReac Type Severity Reaction Status Date / Time No Known Allergies Allergy Verified 05/20/16 14:37 - Medications Medications: Current Medications Piperacillin Sod/Tazobactam (Sod 2.25 gm/ Sodium Chloride) 100 mls @ 100 mls/ hr IVPB Q6 CHERYL Last Admin: 10/08/16 16:23 Dose: 100 mls/hr Dextrose (Dextrose 5% In Water 1000 Ml) 1,000 mls @ 50 mls/hr IV .Q20H CHERYL Stop: 10/09/16 10:46 Last Admin: 10/08/16 12:12 Dose: 50 mls/hr Ipratropium [place] (Atrovent) 0.5 mg IH Q8H PRN PRN Reason: sob/wheezing Last Admin: 10/08/16 19:14 Dose: 0.5 mg Levalbuterol HCl (Xopenex) 0.63 mg INH RQ8 PRN PRN Reason: Shortness of Breath Last Admin: 10/08/16 19:14 Dose: 0.63 mg Ondansetron HCl (Zofran Inj) 4 mg IVP Q4 PRN PRN Reason: Nausea/Vomiting Physical Exam - Head Exam Head Exam: ATRAUMATIC - Eye Exam Eye Exam: Scleral icterus - ENT Exam ENT Exam: Mucous Membranes Dry - Respiratory Exam Respiratory Exam: Decreased Breath Sounds - Cardiovascular Exam Cardiovascular Exam: +S1, +S2 - GI/Abdominal Exam GI & Abdominal Exam: Normal Bowel Sounds - Extremities Exam Extremities exam: Positive for: pedal edema - Neurological Exam Neurological exam: Altered - Skin Skin Exam: Warm Results - Vital Signs Recent Vital Signs: Last Vital Signs Temp 97.6 F 10/08/16 20:00 Pulse 110 H 10/08/16 20:00 Resp 30 H 10/08/16 20:04 BP 99/57 L 10/08/16 20:00 Pulse Ox 98 10/08/16 20:00 - Labs Result Diagrams: 10/08/16 05:15 10/08/16 05:15 Labs: Laboratory Results - last 24 hr 10/07/16 10/07/16 10/08/16 04:50 23:10 04:35 WBC RBC Hgb Hct MCV MCH MCHC RDW Plt Count PT INR APTT Fibrinogen pCO2 pO2 HCO3 ABG pH ABG Total CO2 ABG O2 Saturation ABG Base Excess [place] Test ABG Potassium A-a O2 Difference Sodium Chloride Glucose Lactate Vent Mode FiO2 Blood Gas Notified Time Potassium Carbon Dioxide Anion Gap BUN Creatinine Est GFR ( Amer) Est GFR (Non-Af Amer) POC Glucose (mg/dL) 106 Random Glucose Lactic Acid 5.7 H* Calcium Total Bilirubin AST ALT Alkaline Phosphatase Troponin I Total Protein Albumin Globulin Albumin/Globulin Ratio Free T4 TSH 3rd Generation Arterial Blood Potassium ALY Screen Negative Anti-Mitochondrial Ab Negative Smooth Muscle Ab Titer TEST NOT PERFORMED Anti-Smooth Muscle Ab Negative 10/08/16 10/08/16 10/08/16 05:02 05:15 11:01 WBC 13.7 H RBC 4.74 Hgb 14.2 Hct 45.1 MCV 95.0 H MCH 29.9 MCHC 31.5 L RDW 15.6 H Plt Count 73 L D PT 28.6 H INR 2.75 H APTT 49.7 H Fibrinogen 62 L* pCO2 28 L pO2 114 H HCO3 22.0 ABG pH 7.44 ABG Total CO2 19.9 L ABG O2 Saturation 99.5 H ABG Base Excess -3.8 L Alban Test Yes ABG Potassium 4.1 A-a O2 Difference 136.0 Sodium 153.0 H 159 H Chloride 130.0 H 124 H Glucose 119 H Lactate 3.3 H Vent Mode High flow FiO2 40.0 Blood Gas Notified Time 509 Potassium 4.5 Carbon Dioxide 18 L Anion Gap 22 H BUN 64 H Creatinine 1.7 H Est GFR ( Amer) 50 Est GFR (Non-Af Amer) 41 POC Glucose (mg/dL) Random Glucose 113 H Lactic Acid Calcium 9.2 Total Bilirubin 4.4 H AST 1109 H ALT 917 H Alkaline Phosphatase 58 Troponin I Total Protein 6.0 L Albumin 3.0 L Globulin 2.9 Albumin/Globulin Ratio 1.0 Free T4 1.19 TSH 3rd Generation 1.97 Arterial Blood Potassium 4.1 ALY Screen Anti-Mitochondrial Ab Smooth Muscle Ab Titer Anti-Smooth Muscle Ab 10/08/16 10/08/16 14:40 15:00 WBC RBC Hgb Hct MCV MCH MCHC RDW Plt Count PT INR APTT Fibrinogen pCO2 31 L pO2 104 H HCO3 24.8 ABG pH 7.47 H ABG Total CO2 23.6 ABG O2 Saturation 99.7 H ABG Base Excess -0.2 [place] Test Yes ABG Potassium 3.8 A-a O2 Difference 142.0 Sodium 153.0 H Chloride 133.0 H Glucose 151 H Lactate 1.8 Vent Mode FiO2 40.0 Blood Gas Notified Time Potassium Carbon Dioxide Anion Gap BUN Creatinine Est GFR ( Amer) Est GFR (Non-Af Amer) POC Glucose (mg/dL) Random Glucose Lactic Acid 1.6 Calcium Total Bilirubin AST ALT Alkaline Phosphatase Troponin I 0.0410 Total Protein Albumin Globulin Albumin/Globulin Ratio Free T4 TSH 3rd Generation Arterial Blood Potassium 3.8 ALY Screen Anti-Mitochondrial Ab Smooth Muscle Ab Titer Anti-Smooth Muscle Ab Assessment & Plan (1) DIC (disseminated intravascular coagulation) Assessment and Plan: ?sepsis on antibiotics given predominant clotting, would recommend anticoagulation the timing of his thrombocytopenia and trend does not fit with HIT (plt azar slightly on heparin) my feeling is it is okay to use heparin/lovenox; if PTT highly varaiable, can use lovenox (renal dosing) and monitor for bleeding would recommend imaging of the brain before anticoagulation given AMS hold anticoagulation for plt <50,000 or significant bleeding Status: Acute (2) Coagulopathy Assessment and Plan: DIC treat underlying condition Status: Acute (3) Thrombocytopenia Assessment and Plan: secondary to DIC Thank you for this interesting consult. Status: Acute
[2016-10-08] MEDS ORDERED: Sodium Chloride 0.9% 500 ML IV ONE (23:07)
[2016-10-09] MEDS ORDERED: Sodium Chloride 0.9% 500 ML IV ONE (00:08)
[2016-10-09 00:12] LABS: FT3 2.01 pg/mL (2.77-5.27)
[2016-10-09] MEDS: Ipratropium 0.02% Inhal Soln (0.5 mg/2.5 ml) UD IH PRN (05:09)
[2016-10-09] MEDS: Levalbuterol 0.63 MG/3 ML Inhal Soln UD INH PRN (05:09)
[2016-10-09 05:46] LABS: BASO % 0.1 % (0.0-2.0); HEMATOCRIT 40.5 % (35.0-51.0); LYMPH # 0.8 K/uL (1.0-4.3); LYMPH % 6.5 % (20.0-40.0); MEAN CELL VOLUME 96.2 fl (80.0-94.0); MEAN CORPUSCULAR HEMOGLOBIN 29.7 pg (27.0-31.0); MEAN CORPUSCULAR HGB CONC 30.9 g/dL (33.0-37.0); MEAN PLATELET VOLUME 9.1 fl (7.2-11.7); MONO # 1.4 K/uL (0.0-0.8); MONO % 11.2 % (0.0-10.0); NEUT # 10.4 K/uL (1.8-7.0); NEUT % 82.2 % (50.0-75.0); NRBC % 0.9 % (0.0-0.0); PLATELET COUNT 53 K/uL (130-400); RED CELL DISTRIBUTION WIDTH 16.6 % (11.5-14.5); WHITE BLOOD COUNT 12.6 K/uL (4.8-10.8)
[2016-10-09 06:02] LABS: BILIRUBIN,TOTAL 5.5 mg/dl (0.2-1.3); CALCIUM 8.5 mg/dL (8.4-10.2); POTASSIUM 4.1 MMOL/L (3.6-5.0); TOTAL PROTEIN 5.4 G/DL (6.3-8.2)
[2016-10-09 06:13] LABS: TROPONIN I 0.083 ng/mL (0.00-0.120)
[2016-10-09 06:48] LABS: PARTIAL THROMBOPLASTIN TIME 51.5 SECONDS (23.3-32.5)
[2016-10-09] MEDS ORDERED: Iodixanol 320 MG/ML 100 ML BOTTLE IV ONE (09:07)
[2016-10-09] MEDS ORDERED: Lidocaine 1% Inj (20ml) ONE (09:07)
[2016-10-09 09:35] LABS: ACANTHOCYTES SLIGHT; NEUTROPHIL 82 % (42-75); TOTAL CELLS COUNTED 100
--- NOTE | 2016-10-09 10:07 | PN ---
DATE: 10/09/2016 The patient seen and examined. Interim events noted. Consults noted, appreciated. Vitreo Retinal Surgeon and hematology/oncology consult, and GI followup and intervention noted and appreciated. The patient rem ains in intensive care unit . Not able to provide informative history or review of systems. De nies any specific complaints. PHYSICAL EXAMINATION: GENERAL: The patient is in no acute distress. VITAL SIGNS: Stable. Blood pressure is , heart rate is 102. HEART: S1 and S2 tachycardic. No significant murmur, gallop or rub . LUNGS: Shows good bilateral air exchange. ABDOMEN: Soft, nontender. EXTREMITIES: No calf swelling, no tenderness, no acute ischemia. CENTRAL NERVOUS SYSTEM: Essentially unchanged. DIAGNOSTIC DATA: Available reviewed. Telemetry monitoring does not show significant arrhythmias. Overall, patient's general medical condition is stable hemodynamically, although his jail prognos is is poor. Family has opted for DNR and DNI. Case and plan discussed with family at bedside at [facility]. Chun Valdez MD cc: [id number] TT: 10/09/2016 10:06:45 Confirmation # [id number] Dictation # [id number]
--- NOTE | 2016-10-09 10:16 | RAD ---
HISTORY: f/u CHF, PNA COMPARISON: Comparison chest 10/07/2016. FINDINGS: LUNGS: Re- demonstrated right lower lobe opacity that may represent atelectasis/ infiltrate or effusion. Suspect minor left basilar atelectasis. PLEURA: No significant pleural effusion identified, no pneumothorax apparent. CARDIOVASCULAR: Heart remains enlarged. OSSEOUS STRUCTURES: No significant abnormalities. VISUALIZED UPPER ABDOMEN: Normal. OTHER FINDINGS: None. IMPRESSION: Re- demonstrated is right lower lobe opacity that may represent some combination of atelectasis/ infiltrate and effusion.
--- NOTE | 2016-10-09 10:19 | PCM.SURG1 ---
Surgeon's Initial Post Op Note - Surgeon's Notes Surgeon: Miguel Giron Phlebotomy Supervisor: NONE Type of Anesthesia: Local Pre-Operative Diagnosis: Heart failure, DVT, PE Operative Findings: Patent right femoral vein. Inflow of right and left renal veins noted. No IVC thrombus. Post-Operative Diagnosis: Heart failure, DVT, PE Operation Performed: Placement of a retrievable filter in the infrarenal IVC. Specimen/Specimens Removed: NONE Estimated Blood Loss: EBL {In ML}: 0 Blood Products Given: N/A Drains Used: No Drains Post-Op Condition: Poor Date of Surgery/Procedure: 10/09/16 Time of Surgery/Procedure: 10:10
--- NOTE | 2016-10-09 11:07 | CP.CCUPN ---
<Augustine Pacheco T - Last Filed: 10/09/16 12:41> CCU Subjective - Physician Review Subjective (Free Text): Pt seen and examined at bedside in ICU. Pt is alert but not oriented. Due to AMS , despite assistance from seam stayer, pt cannot answer any questions appropriately, including the full ROS questions. CCU Objective - Vital Signs / Intake & Output Vital Signs (Last 4 hours): Vital Signs Temp Pulse Resp BP Pulse Ox 10/09/16 10:19 111 H 122/53 L 98 10/09/16 10:06 30 H 10/09/16 10:04 99.1 F 117 H 14 141/30 L 97 Intake and Output (Last 8hrs): Intake & Output 10/08/16 10/09/16 10/09/16 22:59 06:59 14:59 Intake Total 450 1350 Output Total 800 250 Balance -350 1100 Intake: IV 350 250 Intake, Piggyback 100 1100 Output: Urine 800 250 Urethral (Ivan) 800 250 - Physical Exam Physical Exam Limitations: Positive for: Altered Mental Status Head: Positive for: Atraumatic, Normocephalic Pupils: Positive for: PERRL Conjunctiva: Positive for: Icteric Mouth: Positive for: Dry Neck: Positive for: Trachea Midline. Negative for: MIDLINE TENDERNESS, JVD Respiratory/Chest: Positive for: Clear to Auscultation. Negative for: Wheezes, Decreased Breath Sounds, Rhonchi Cardiovascular: Positive for: Regular Rate and Rhythm, Murmurs Abdomen: Positive for: Tenderness. Negative for: Distention, Rebound, Guarding Genitourinary Male: Positive for: Hernias (reducible) Upper Extremity: Positive for: Normal Inspection. Negative for: Edema Lower Extremity: Positive for: Edema Neurological: Negative for: Speech Normal Skin: Positive for: Dry Psychiatric: Positive for: Alert, Other (orientation varies bw self and self & location) - Medications Active Medications: Active Medications Generic Name Dose Route Start Last Admin Trade Name Freq PRN Reason Stop Dose Admin Piperacillin Sod/Tazobactam 100 mls @ 100 mls/hr 10/06/16 10:30 10/09/16 04:47 Sod 2.25 gm/ Sodium Chloride IVPB 100 mls/hr Q6 CHERYL Administration Dextrose 1,000 mls @ 100 mls/hr 10/09/16 06:35 10/09/16 06:47 Dextrose 5% In Water 1000 Ml IV 100 mls/hr .Q10H CHERYL Administration Ipratropium [place] 0.5 mg 10/06/16 19:49 10/09/16 05:09 Atrovent IH 0.5 mg Q8H PRN Administration sob/wheezing Levalbuterol HCl 0.63 mg 10/06/16 19:48 10/09/16 05:09 Xopenex INH 0.63 mg RQ8 PRN Administration Shortness of Breath Ondansetron HCl 4 mg 10/08/16 20:03 Zofran Inj IVP Q4 PRN Nausea/Vomiting - Patient Studies Lab Studies: Lab Studies 10/09/16 10/08/16 10/08/16 Range/Units 04:30 15:00 14:40 WBC 12.6 H (4.8-10.8) K/uL RBC 4.21 L (4.40-5.90) Mil/uL Hgb 12.5 (12.0-18.0) g/dL Hct 40.5 (35.0-51.0) % MCV 96.2 H (80.0-94.0) fl MCH 29.7 (27.0-31.0) pg MCHC 30.9 L (33.0-37.0) g/dL RDW 16.6 H (11.5-14.5) % Plt Count 53 L D (130-400) K/uL MPV 9.1 (7.2-11.7) fl Neut % (Auto) 82.2 H (50.0-75.0) % Lymph % (Auto) 6.5 L (20.0-40.0) % [place] % (Auto) 11.2 H (0.0-10.0) % Eos % (Auto) 0.0 (0.0-4.0) % Baso % (Auto) 0.1 (0.0-2.0) % Neut # 10.4 H (1.8-7.0) K/uL Lymph # 0.8 L (1.0-4.3) K/uL [place] # 1.4 H (0.0-0.8) K/uL Eos # 0.0 (0.0-0.7) K/uL Baso # 0.0 (0.0-0.2) K/uL Neutrophils % (Manual) 82 H (42-75) % Lymphocytes % (Manual) 5 L (20-50) % Monocytes % (Manual) 13 H (0-10) % Platelet Estimate Markedly decreased L (NORMAL) Anisocytosis (manual) Slight Ivon Cells Slight Acanthocytes (Spur) Slight PT 28.4 H (9.6-11.2) SECONDS INR 2.73 H (0.92-1.08) APTT 51.5 H (23.3-32.5) SECONDS Fibrinogen 74 L* (200-400) mg/dl pCO2 31 L (35-45) mm/Hg pO2 104 H (80-100) mm/Hg HCO3 24.8 (21-28) mmol/L ABG pH 7.47 H (7.35-7.45) ABG Total CO2 23.6 (22-28) mmol/L ABG O2 Saturation 99.7 H (95-98) % ABG Base Excess -0.2 (-2.0-3.0) mmol/L [place] Test Yes ABG Potassium 3.8 (3.6-5.2) mmol/L A-a O2 Difference 142.0 mm/Hg Glucose 151 H (75-110) mg/dL Lactate 1.8 (0.7-2.1) mmol/L FiO2 40.0 % Sodium 165 H* 153.0 H (132-148) mmol/l Potassium 4.1 (3.6-5.0) MMOL/L Chloride 127 H 133.0 H (98-107) mmol/L Carbon Dioxide 19 L (22-30) mmol/L Anion Gap 23 H (10-20) BUN 55 H (9-20) mg/dl Creatinine 1.6 H (0.8-1.5) mg/dL Est GFR ( Amer) 53 Est GFR (Non-Af Amer) 44 Random Glucose 126 H (75-110) mg/dL Lactic Acid 5.0 H* 1.6 (0.7-2.1) MMOL/L Calcium 8.5 (8.4-10.2) mg/dL Total Bilirubin 5.5 H (0.2-1.3) mg/dl AST 1073 H (17-59) U/L ALT 959 H (21-72) U/L Alkaline Phosphatase 54 (38-126) U/L Troponin I 0.0830 0.0410 (0.00-0.120) ng/mL Total Protein 5.4 L (6.3-8.2) G/DL Albumin 2.6 L (3.5-5.0) g/dL Globulin 2.7 (2.2-3.9) gm/dL Albumin/Globulin Ratio 1.0 (1.0-2.1) Free T4 (0.78-2.19) ng/dL TSH 3rd Generation (0.46-4.68) mIU/ML Arterial Blood Potassium 3.8 (3.6-5.2) mmol/L ALY Screen (Negative) Anti-Mitochondrial Ab (Negative) Smooth Muscle Ab Titer Anti-Smooth Muscle Ab (Negative) 10/08/16 10/07/16 Range/Units 11:01 04:50 WBC (4.8-10.8) K/uL RBC (4.40-5.90) Mil/uL Hgb (12.0-18.0) g/dL Hct (35.0-51.0) % MCV (80.0-94.0) fl MCH (27.0-31.0) pg MCHC (33.0-37.0) g/dL RDW (11.5-14.5) % Plt Count (130-400) K/uL MPV (7.2-11.7) fl Neut % (Auto) (50.0-75.0) % Lymph % (Auto) (20.0-40.0) % [place] % (Auto) (0.0-10.0) % Eos % (Auto) (0.0-4.0) % Baso % (Auto) (0.0-2.0) % Neut # (1.8-7.0) K/uL Lymph # (1.0-4.3) K/uL [place] # (0.0-0.8) K/uL Eos # (0.0-0.7) K/uL Baso # (0.0-0.2) K/uL Neutrophils % (Manual) (42-75) % Lymphocytes % (Manual) (20-50) % Monocytes % (Manual) (0-10) % Platelet Estimate (NORMAL) Anisocytosis (manual) Ivon Cells Acanthocytes (Spur) PT (9.6-11.2) SECONDS INR (0.92-1.08) APTT (23.3-32.5) SECONDS Fibrinogen (200-400) mg/dl pCO2 (35-45) mm/Hg pO2 (80-100) mm/Hg HCO3 (21-28) mmol/L ABG pH (7.35-7.45) ABG Total CO2 (22-28) mmol/L ABG O2 Saturation (95-98) % ABG Base Excess (-2.0-3.0) mmol/L [place] Test ABG Potassium (3.6-5.2) mmol/L A-a O2 Difference mm/Hg Glucose (75-110) mg/dL Lactate (0.7-2.1) mmol/L FiO2 % Sodium (132-148) mmol/l Potassium (3.6-5.0) MMOL/L Chloride (98-107) mmol/L Carbon Dioxide (22-30) mmol/L Anion Gap (10-20) BUN (9-20) mg/dl Creatinine (0.8-1.5) mg/dL Est GFR ( Amer) Est GFR (Non-Af Amer) Random Glucose (75-110) mg/dL Lactic Acid (0.7-2.1) MMOL/L Calcium (8.4-10.2) mg/dL Total Bilirubin (0.2-1.3) mg/dl AST (17-59) U/L ALT (21-72) U/L Alkaline Phosphatase (38-126) U/L Troponin I (0.00-0.120) ng/mL Total Protein (6.3-8.2) G/DL Albumin (3.5-5.0) g/dL Globulin (2.2-3.9) gm/dL Albumin/Globulin Ratio (1.0-2.1) Free T4 1.19 (0.78-2.19) ng/dL TSH 3rd Generation 1.97 (0.46-4.68) mIU/ML Arterial Blood Potassium (3.6-5.2) mmol/L ALY Screen Negative (Negative) Anti-Mitochondrial Ab Negative (Negative) Smooth Muscle Ab Titer TEST NOT PERFORMED Anti-Smooth Muscle Ab Negative (Negative) Laboratory Results - last 24 hr 10/07/16 10/08/16 10/08/16 04:50 11:01 14:40 WBC RBC Hgb Hct MCV MCH MCHC RDW Plt Count MPV Neut % (Auto) Lymph % (Auto) [place] % (Auto) Eos % (Auto) Baso % (Auto) Neut # Lymph # [place] # Eos # Baso # Neutrophils % (Manual) Lymphocytes % (Manual) Monocytes % (Manual) Platelet Estimate Anisocytosis (manual) Ivon Cells Acanthocytes (Spur) PT INR APTT Fibrinogen pCO2 31 L pO2 104 H HCO3 24.8 ABG pH 7.47 H ABG Total CO2 23.6 ABG O2 Saturation 99.7 H ABG Base Excess -0.2 Alban Test Yes ABG Potassium 3.8 A-a O2 Difference 142.0 Sodium 153.0 H Chloride 133.0 H Glucose 151 H Lactate 1.8 FiO2 40.0 Potassium Carbon Dioxide Anion Gap BUN Creatinine Est GFR ( Amer) Est GFR (Non-Af Amer) Random Glucose Lactic Acid Calcium Total Bilirubin AST ALT Alkaline Phosphatase Troponin I Total Protein Albumin Globulin Albumin/Globulin Ratio Free T4 1.19 TSH 3rd Generation 1.97 Arterial Blood Potassium 3.8 ALY Screen Negative Anti-Mitochondrial Ab Negative Smooth Muscle Ab Titer TEST NOT PERFORMED Anti-Smooth Muscle Ab Negative 10/08/16 10/09/16 15:00 04:30 WBC 12.6 H RBC 4.21 L Hgb 12.5 Hct 40.5 MCV 96.2 H MCH 29.7 MCHC 30.9 L RDW 16.6 H Plt Count 53 L D MPV 9.1 Neut % (Auto) 82.2 H Lymph % (Auto) 6.5 L [place] % (Auto) 11.2 H Eos % (Auto) 0.0 Baso % (Auto) 0.1 Neut # 10.4 H Lymph # 0.8 L [place] # 1.4 H Eos # 0.0 Baso # 0.0 Neutrophils % (Manual) 82 H Lymphocytes % (Manual) 5 L Monocytes % (Manual) 13 H Platelet Estimate Markedly decreased L Anisocytosis (manual) Slight Ivon Cells Slight Acanthocytes (Spur) Slight PT 28.4 H INR 2.73 H APTT 51.5 H Fibrinogen 74 L* pCO2 pO2 HCO3 ABG pH ABG Total CO2 ABG O2 Saturation ABG Base Excess [place] Test ABG Potassium A-a O2 Difference Sodium 165 H* Chloride 127 H Glucose Lactate FiO2 Potassium 4.1 Carbon Dioxide 19 L Anion Gap 23 H BUN 55 H Creatinine 1.6 H Est GFR ( Amer) 53 Est GFR (Non-Af Amer) 44 Random Glucose 126 H Lactic Acid 1.6 5.0 H* Calcium 8.5 Total Bilirubin 5.5 H AST 1073 H ALT 959 H Alkaline Phosphatase 54 Troponin I 0.0410 0.0830 Total Protein 5.4 L Albumin 2.6 L Globulin 2.7 Albumin/Globulin Ratio 1.0 Free T4 TSH 3rd Generation Arterial Blood Potassium ALY Screen Anti-Mitochondrial Ab Smooth Muscle Ab Titer Anti-Smooth Muscle Ab Fingerstick Blood Sugar Results: 148 Review of Systems - Review of Systems Review of Systems: see HPI Critical Care Progress Note - Nutrition Nutrition: Nutrition Category Date Time Status Dysphagia/Modified Consistency Diet [DIET] Diets 10/08/16 Dinner Active Assessment/Plan - Assessment and Plan (Free Text) Plan: 61 yo M w PMHx of CAD, '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 1) Elevated Tbilirubin / LFTs -Liver dysfunction, LFTs elevated and Tbili still elevated -Cholecystitis w hepatic bile retention VS congestion from Heart Failure VS unknown etiology -Tbili: 5.5, increased from 4.4 yesterday -LFTs: 1073/959 today, from 1109/917 yesterday -U/S Abd: Thickened gb wall w pericholecystic fluid & echogenic calculus w/in gb lumen. Mild intrahepatic biliary ductal dilation. -CTA: Cholelithiasis, highly suggestive of acute cholecystitis. -GI Onboard -f/u labs -f/u MRCP 2) Pulmonary embolism -Confirmed b/l LE DVTs -IVC filter placed today -Troponins wnl, indicating more of a chronic PE picture -Fibrinogen: 74 (L) -Hem/Onc Onboard -f/u Coags 3) Hypernatremia -Na 165 today, 159 yesterday -D5W @100cc/hr -Lasix 20mg IVP STAT overnight -f/u labs 4) Systolic Heart Failure -Cardiac Echo: LV severely dilated, LV systolic fcn profoundly depressed, EF < 10%, severe MR, severe pulm HTN; LV apical thrombus is ruled out -CXR: no infiltrates, enlarged heart 5) Lactic Acidosis -Likely Type B1 w/in setting of ischemia and presence of worsening LFTs & coags -Lactic Acid: 5.0, yesterday 1.6 -BCx: Neg -UCx: Neg -GI Onboard -f/u continuing labs -f/u MRCP 6) Altered Mental Status -Chronic, long standing history since CVA 7) DVT Prophylaxis -SCDs -Heparin Held due to elevated PTT <Zee,Gurpreet Ariza - Last Filed: 10/09/16 15:13> CCU Subjective - Physician Review Subjective (Free Text): Attestation: Patient seen and examined at the bedside with Resident Dr. Anu Pacheco; and I agree with his outline of plans and management documented below as discussed on AM rounds reflecting my review of all applicable clinical data, and participation in the care of the patient throughout the day in ICU; today, October 09, 2016.
--- NOTE | 2016-10-09 11:17 | CP.PCM.PN ---
<Jomar Stoll - Last Filed: 10/09/16 11:19> Subjective - Date & Time of Evaluation Date of Evaluation: 10/09/16 Time of Evaluation: 06:50 - Subjective Subjective: Gen Surg: Dr. Sánchez Patient seen and examined. Patient appeared agitated and confused this AM. states patient was a bit restless over night. Patient unable to answer questions despite being at bedside. Objective - Vital Signs/Intake and Output Vital Signs (last 24 hours): Temp Pulse Resp BP Pulse Ox 99.1 F 111 H 30 H 122/53 L 98 10/09/16 10:04 10/09/16 10:19 10/09/16 10:06 10/09/16 10:19 10/09/16 10:19 Intake and Output: 10/09/16 10/09/16 06:59 18:59 Intake Total 1600 200 Output Total 350 Balance 1250 200 - Medications Medications: Current Medications Piperacillin Sod/Tazobactam (Sod 2.25 gm/ Sodium Chloride) 100 mls @ 100 mls/ hr IVPB Q6 CHERYL Last Admin: 10/09/16 10:53 Dose: 100 mls/hr Dextrose (Dextrose 5% In Water 1000 Ml) 1,000 mls @ 100 mls/hr IV .Q10H CHERYL Last Admin: 10/09/16 06:47 Dose: 100 mls/hr Ipratropium [place] (Atrovent) 0.5 mg IH Q8H PRN PRN Reason: sob/wheezing Last Admin: 10/09/16 05:09 Dose: 0.5 mg Levalbuterol HCl (Xopenex) 0.63 mg INH RQ8 PRN PRN Reason: Shortness of Breath Last Admin: 10/09/16 05:09 Dose: 0.63 mg Ondansetron HCl (Zofran Inj) 4 mg IVP Q4 PRN PRN Reason: Nausea/Vomiting - Labs Labs: 10/09/16 04:30 10/09/16 04:30 PT 28.4 SECONDS (9.6-11.2) H 10/09/16 04:30 INR 2.73 (0.92-1.08) H 10/09/16 04:30 APTT 51.5 SECONDS (23.3-32.5) H 10/09/16 04:30 - Constitutional Appears: Agitated - Head Exam Head Exam: NORMOCEPHALIC - ENT Exam ENT Exam: Mucous Membranes Dry - Cardiovascular Exam Cardiovascular Exam: Tachycardia, +S1, +S2 - GI/Abdominal Exam GI & Abdominal Exam: Soft - Neurological Exam Neurological Exam: Alert - Skin Skin Exam: Dry, Warm Assessment and Plan - Assessment and Plan (Free Text) Assessment: 61 y.o. male with elevated LFTs - No general surgery intervention at present time - GI follow up - Continue care as per ICU team - D/w Dr. Sánchez <Murray Sánchez - Last Filed: 10/09/16 11:24> Subjective - Date & Time of Evaluation Date of Evaluation: 10/09/16 Time of Evaluation: 09:40 - Subjective Subjective: Patient was seen and examined at the bedside. Agree with resident's note above. Objective - Vital Signs/Intake and Output Vital Signs (last 24 hours): Temp Pulse Resp BP Pulse Ox 99.1 F 111 H 30 H 122/53 L 98 10/09/16 10:04 10/09/16 10:19 10/09/16 10:06 10/09/16 10:19 10/09/16 10:19 Intake and Output: 10/09/16 10/09/16 06:59 18:59 Intake Total 1600 200 Output Total 350 Balance 1250 200 - Medications Medications: Current Medications Piperacillin Sod/Tazobactam (Sod 2.25 gm/ Sodium Chloride) 100 mls @ 100 mls/ hr IVPB Q6 CHERYL Last Admin: 10/09/16 10:53 Dose: 100 mls/hr Dextrose (Dextrose 5% In Water 1000 Ml) 1,000 mls @ 100 mls/hr IV .Q10H CHERYL Last Admin: 10/09/16 06:47 Dose: 100 mls/hr Ipratropium [place] (Atrovent) 0.5 mg IH Q8H PRN PRN Reason: sob/wheezing Last Admin: 10/09/16 05:09 Dose: 0.5 mg Levalbuterol HCl (Xopenex) 0.63 mg INH RQ8 PRN PRN Reason: Shortness of Breath Last Admin: 10/09/16 05:09 Dose: 0.63 mg Ondansetron HCl (Zofran Inj) 4 mg IVP Q4 PRN PRN Reason: Nausea/Vomiting - Labs Labs: 10/09/16 04:30 10/09/16 04:30 PT 28.4 SECONDS (9.6-11.2) H 10/09/16 04:30 INR 2.73 (0.92-1.08) H 10/09/16 04:30 APTT 51.5 SECONDS (23.3-32.5) H 10/09/16 04:30 Assessment and Plan - Assessment and Plan (Free Text) Plan: - No general surgery intervention at present time - Continue care as per ICU and medical teams - Will sign off - Please reconsult general surgery as needed
--- NOTE | 2016-10-09 12:36 | PN ---
DATE: 10/09/2016 The patient underwent IVC filter placement this morning. The patient is mildly short of breath. PHYSICAL EXAMINATION: VITAL SIGNS: Blood pressure 194/58, heart rate 110, temperature 99.1, respirations 28. HEENT: Normocephalic. NECK: No JVD. CHEST: Bilateral rhonchi. HEART: S1, S2 regular. EXTREMITIES: Trace edema. LABORATORIES: Hemoglobin and hematocrit 12.5 and 40.5, white count is 12.6, platelet count has dropp ed to 53,000. PTT is 51.5, INR is 2.7. Fibrinogen level is below normal at 7.4. ALY screen, anti-m itochondrial antibody and anti-smooth muscle antibody are all negative. Hepatitis profile is negativ e. ASSESSMENT: 1. Bilateral deep venous thrombosis and pulmonary embolism. 2. Thrombocytopenia, prolonged PT and PTT, rule out disseminated intravascular coagulopathy. 3. Cardiomyopathy. 4. History of cerebrovascular accident. RECOMMENDATIONS: I did review the hematology consult assessment and plan. Dr. Gonzales recommended rico ging of the brain before anticoagulation given altered mental status and to hold anticoagulation for platelet count less than 50,000 or significant bleeding. He also recommended the use of renal dosing of subcutaneous Lovenox as the choice of anticoagulation if the head CT scan is negative. In the me antime, continue Xopenex and IV Zosyn. Optimize intravenous hydration in view of hyponatremia and wo rsening renal insufficiency. The patient is not a suitable candidate for KEE inhibitors at this time . Jake Gong MD cc: [id number] TT: 10/09/2016 12:36:10 Confirmation # [id number] Dictation # [id number]
--- NOTE | 2016-10-09 16:06 | CP.PCM.PN ---
Subjective - Date & Time of Evaluation Date of Evaluation: 10/09/16 Time of Evaluation: 11:30 - Subjective Subjective: Patient seen and examined. He remains in ICU. S/p IVC filter. He is confused and unable to provide meaningful conversation. No acute events. Objective - Vital Signs/Intake and Output Vital Signs (last 24 hours): Temp Pulse Resp BP Pulse Ox 98.9 F 116 H 26 H 93/67 L 96 10/09/16 12:00 10/09/16 14:00 10/09/16 14:00 10/09/16 14:00 10/09/16 14:00 Intake and Output: 10/09/16 10/09/16 06:59 18:59 Intake Total 1600 700 Output Total 350 1000 Balance 1250 -300 - Medications Medications: Current Medications Piperacillin Sod/Tazobactam (Sod 2.25 gm/ Sodium Chloride) 100 mls @ 100 mls/ hr IVPB Q6 CHERYL Last Admin: 10/09/16 10:53 Dose: 100 mls/hr Dextrose (Dextrose 5% In Water 1000 Ml) 1,000 mls @ 100 mls/hr IV .Q10H CHERYL Last Admin: 10/09/16 06:47 Dose: 100 mls/hr Ipratropium [place] (Atrovent) 0.5 mg IH Q8H PRN PRN Reason: sob/wheezing Last Admin: 10/09/16 05:09 Dose: 0.5 mg Levalbuterol HCl (Xopenex) 0.63 mg INH RQ8 PRN PRN Reason: Shortness of Breath Last Admin: 10/09/16 05:09 Dose: 0.63 mg Ondansetron HCl (Zofran Inj) 4 mg IVP Q4 PRN PRN Reason: Nausea/Vomiting - Labs Labs: 10/09/16 04:30 10/09/16 04:30 PT 28.4 SECONDS (9.6-11.2) H 10/09/16 04:30 INR 2.73 (0.92-1.08) H 10/09/16 04:30 APTT 51.5 SECONDS (23.3-32.5) H 10/09/16 04:30 - Constitutional Appears: No Acute Distress - Eye Exam Eye Exam: Scleral icterus - Respiratory Exam Additional comments: decreased bilateral breath sounds - Cardiovascular Exam Cardiovascular Exam: +S1, +S2 - GI/Abdominal Exam Additional comments: abdomen soft, non tender to palpation, no rebound or guarding, bowel sounds present - Extremities Exam Extremities Exam: Pedal Edema - Neurological Exam Additional comments: disoriented, moaning at times - Skin Skin Exam: Dry Assessment and Plan - Assessment and Plan (Free Text) Assessment: This is a 61 year old male with h/o coronary artery disease, prior stroke, HTN, and HLD is admitted with PE/DVT, heart failure, and abnormal LFTs. His LFT abnormality is likely multifactorial, congestive hepatopathy/ischemia/shock liver. Plan: Monitor LFTs, abd sono with thickened GB wall/gallstones, normal CBD, surgery following with now planned intervention Hep panel negative, autoimmune serologies negative Management of electrolyte disturbance/hypernatremia as per ICU team Obtain MRCP when stable Avoid hepatotoxins
[2016-10-09] MEDS ORDERED: Chlorhexidine Gluconate 1 APPL/PKT TP ONE (20:32)
--- NOTE | 2016-10-09 21:09 | CP.PCM.PRO ---
Pronouncement of Note - Clinical Findings Physical Exam: No Response Verbal/Painful Stimuli, Absent Peripheral Pulses{ Carotid & Femoral}, Absent Heart & Breath Sounds, No Pupillary Light Reflex, No Corneal Reflex, Pupils Fixed & Dilated, Absence of Vital Signs - Pronouncement Time Time of Pronouncement of : 20:48 - Notifications Pronouncement Notifications: Family Notified, Atending Notified Environmental Health Officer Notified: No - Autopsy Autopsy Requested: No - [place] [id number] Additional Comments: Patient was DNR/DNI
[2016-10-09 22:21] VITALS: BP 93/46; PULSE 110; RESP 39; TEMP 100.8
[2016-10-11 15:50] LABS: HEPARIN-IND PLATELET AB Negative (Negative)
--- NOTE | 2016-10-13 10:53 | PQF SEPSIS ---
Dr. Valdez pt was admitted with possible sepsis. After study was pt admitted and treated for sepsis? This form is a permanent part of the medical record Clarification of your documentation is requested to better reflect the severity of illness and intensity of treatment of your patient. Indicators present [] Temp < 96.8 or > 100.4 [] WBC count > 12,000/mm3 or <000/mm3 or 10% immature neutrophils [] Heart Rate > 90 [] Respiratory Rate > 20 [] Fever or hypothermia [] Chills [] Positive blood cultures [] Hypotension [x] Metabolic acidosis (Elevated lactate level, anion gap or reduced blood pH) [x] Acute confusion /Altered Mental Status [] Shock [] Other: [] Location in the medical record that reflects the above clinical findings: [] Treatment Provided: [] PHYSICIAN'S RESPONSE Based on your medical judgment of the clinical indicators outlined above, are you treating this patient for a known or suspected: [] Sepsis / Septicemia Please specify organism if known [] [] SIRS (Systemic Inflammatory Response Syndrome) [] Severe Sepsis (Sepsis with Associated Organ Dysfunction) [] Fever of Unknown Origin [] Other, please indicate: [] [] If Unable to Determine, please check the box, sign and date. Present On Admission (POA) Indicator: [] Present at the time of admission [] Not present at the time of admission [] Clinically Undetermined In responding to this query, please exercise your independent professional judgment. The fact that a question is asked does not imply that any particular answer is desired or expected. Thank you for your clarification on this documentation. If you have any questions please call:[ ] * Thank you, [ ]Prema Vasques manager research development [employer]
--- NOTE | 2016-10-20 16:06 | VASCULAR ---
PROCEDURE: Date of procedure: 10/09/2016 Procedure: Inferior vena cava filter insertion, CPT 12873 Medications: 1% lidocaine HISTORY: Prolonged immobilization, DVT, PE TECHNIQUE: Following informed consent and procedure time-out, the patient is placed supine on the interventional table. Patient right groin was prepped and draped in the usual sterile fashion. Ultrasound showed a compressible and patent right common femoral vein. After skin was anesthetized with 1% lidocaine, the femoral vein was accessed with micropuncture technique. The introducer sheath of an IVC filter was advanced over wire and positioned within the inferior vena cava and an inferior vena cavagram was performed. The inferior vena cava is normal without evidence of thrombus. The inflow of the right and left renal veins were noted. There is no venous anomalies. A retrievable filter was then placed within the infrarenal IVC. Following IVC filter placement, the sheath was removed and pressure was applied to Pt's right groin until hemostasis was achieved. A dressing was applied. IMPRESSION: Placement of retrievable filter within the infrarenal IVC.
[2016-10-23 16:43] VITALS: O2SAT 100
== END 2016-10-09 20:48 | DRG 581 ==
LOC: H.ER 04:34 → H.ERHOLD 09:26 → H.ICU/CCU 14:14
PROVIDERS: ADMIT Internal Medicine; ATTEND Internal Medicine
PROC: 3E0234Z Introduction of Serum, Toxoid and Vaccine into Muscle, Percutaneous Approach (ICD-10-PCS; principal; 2016-10-05)
PROC: 06H03DZ Insertion of Intraluminal Device into Inferior Vena Cava, Percutaneous Approach (ICD-10-PCS; 2016-10-09)
DX: A41.9 Sepsis, unspecified organism (principal); K72.00 Acute and subacute hepatic failure without coma; D65 Disseminated intravascular coagulation [defibrination syndrome]; I26.99 Other pulmonary embolism without acute cor pulmonale; I11.0 Hypertensive heart disease with heart failure; I50.22 Chronic systolic (congestive) heart failure; E87.0 Hyperosmolality and hypernatremia; E87.2 Acidosis; D69.59 Other secondary thrombocytopenia; I82.411 Acute embolism and thrombosis of right femoral vein; I82.441 Acute embolism and thrombosis of right tibial vein; I82.433 Acute embolism and thrombosis of popliteal vein, bilateral; E87.5 Hyperkalemia; K80.00 Calculus of gallbladder with acute cholecystitis without obstruction; I27.2 Other secondary pulmonary hypertension; E83.52 Hypercalcemia; R65.20 Severe sepsis without septic shock; Z23 Encounter for immunization; E78.00 Pure hypercholesterolemia, unspecified; E86.0 Dehydration; E78.5 Hyperlipidemia, unspecified; E86.1 Hypovolemia; G25.81 Restless legs syndrome; I25.10 Atherosclerotic heart disease of native coronary artery without angina pectoris; I25.2 Old myocardial infarction; I25.5 Ischemic cardiomyopathy; Z66 Do not resuscitate; R41.0 Disorientation, unspecified; R13.10 Dysphagia, unspecified